=== PATIENT | male | born 1960 | race Caucasian/White ===

== ENCOUNTER 2022-01-18 07:54 | Outpatient (CLI) | payer MEDICARE, MEDICAID, SELFPAY ==
--- NOTE | ~2022-01-18 | US_ITS ---
US abdomen complete EXAMINATION: US Abdomen Complete INDICATION: Follow-up abnormal findings. PROCEDURE: Realtime High Resolution abdomen ultrasound. COMPARISON: No prior studies for comparison FINDINGS: Gallbladder within normal limits. No gallstones, pericholecystic fluid, gallbladder wall t hickening or biliary dilatation. Gallbladder is mildly distended. Common bile duct measures 5 mm. Liver echotexture within normal limits without focal mass. Pancreas within normal limits. Pancreati c tail is obscured by bowel gas. Spleen is unremarkeable. There are bilateral renal cysts, largest i n the right kidney measuring 12.7 x 9 x 12.5 cm. No solid masses or hydronephrosis. Right kidney kelly ures 13.7 cm. Left kidney measures 10.6 cm. Visualized aspects of the aorta and IVC are within normal limits. There is atherosclerosis of the aor ta without aneurysm. Portal vein is patent. No sonographic Naidu's sign indicated by the technologis t. IMPRESSION: 1: Bilateral renal cysts, largest in the right kidney measuring 12.7 cm maximum dimension. Reviewed, dictated and finalized at location A.
[2022-01-18 09:26] LABS: Alanine Aminotransferase 14 U/L (6-50); Albumin Level 4.3 g/dL (3.5-5.1); Alkaline Phosphatase 71 U/L (38-126); Aspartate Amino Transferase 27 U/L (17-59)
[2022-01-18 09:27] LABS: INR 1.1; Prothrombin Time 13.6 Seconds (11.1-14.7)
[2022-01-18 11:45] LABS: Lactate Dehydrogenase 125 U/L (120-246)
[2022-01-20 16:23] LABS: GGT 20 U/L (3-70)
== END 2022-01-18 07:55 | disposition home or self-care (01) ==
PROVIDERS: PCP Family Medicine; Visit Provider Nurse Practitioner
DX: R19.00 Intra-abdominal and pelvic swelling, mass and lump, unspecified site (principal); R93.2 Abnormal findings on diagnostic imaging of liver and biliary tract; R93.429 Abnormal radiologic findings on diagnostic imaging of unspecified kidney; K83.9 Disease of biliary tract, unspecified; S35.31 Injury of portal vein; N28.1 Cyst of kidney, acquired
CPT/HCPCS: 36415; 76700; 82040; 82977; 83615; 84075; 84155; 84450; 84460; 85610

== ENCOUNTER 2023-03-08 08:21 | Outpatient (CLI) | payer MEDICARE, MEDICAID, SELFPAY ==
--- NOTE | ~2023-03-08 | US_ITS ---
US arterial ankle brachial ind INDICATION: Polyneuropathy TECHNIQUE: Segmental pressures and plethysmographic and Doppler waveforms of the brachial and lower e xtremity arteries were obtained. COMPARISON: None. FINDINGS: Right and left brachial artery pressures of 138 mm Hg. Left brachial pressure not obtained. Patient r efused due to prior trauma. The right ankle-brachial index (GERMAINE) is 0.92 (normal >= 0.9-1.0). The right great toe-brachial index (TBI) is 0.19 (normal >= 0.60). The left GERMAINE is 1.02. The left TBI is 0.33. IMPRESSION: 1. Diminished bilateral toe brachial indices consistent with peripheral arterial disease. 2: Normal bilateral ankle-brachial indices. Reviewed, dictated and finalized at location B. L INSTRUMENT REPAIRER IMPRESSION: 1. Diminished bilateral toe brachial indices consistent with peripheral arteria l disease. 2: Normal bilateral ankle-brachial indices.
== END 2023-03-08 08:22 | disposition home or self-care (01) ==
PROVIDERS: PCP Family Medicine; Visit Provider Nurse Practitioner Adult Health
DX: I73.9 Peripheral vascular disease, unspecified (principal); G62.9 Polyneuropathy, unspecified
CPT/HCPCS: 93922

== ENCOUNTER 2023-05-25 08:17 | Outpatient (CLI) | payer MEDICARE, MEDICAID, SELFPAY ==
[2023-05-25 19:25] LABS: Alanine Aminotransferase 18 U/L (6-50); Albumin Level 4.1 g/dL (3.5-5.1); Alkaline Phosphatase 72 U/L (38-126); Anion Gap 7 mmol/L (8-16); Aspartate Amino Transferase 75 U/L (17-59); Bilirubin,Total 0.6 mg/dL (0.2-1.3); Blood Urea Nitrogen 16 mg/dL (9-20); Calcium 9.4 mg/dL (8.4-10.2); Carbon Dioxide 25 mmol/L (22-30); Chloride 106 mmol/L (98-107); Cholesterol 193 mg/dL (0-200); Estimated Glomerular Filt Rate > 60; Glucose 119 mg/dL (65-110); HDL Direct 69 mg/dL; Sodium 138 mmol/L (137-145); Triglycerides 194 mg/dL (<150)
[2023-05-25 19:36] LABS: Basophils Absolute Auto 0.1 K/mm3 (0.0-0.1); Basophils Percent Auto 0.6 % (0.2-1.2); Eosinophils Percent Auto 0.3 % (0-4.4); Hematocrit 50.1 % (42.0-52.0); Hemoglobin 16.3 g/dL (14.0-18.0); Immature Granulocyte Absolute 0.05 K/mm3 (0.00-0.031); Immature Granulocyte Percent A 0.4 % (0-0.5); Lymphocytes Absolute Auto 2.52 K/mm3 (0.9-3.2); Lymphocytes Percent Auto 17.9 % (18.3-44.2); Mean Corpuscular HGB Conc 32.5 g/dl (32-36); Mean Corpuscular Hemoglobin 31.9 pg (26-34); Monocytes Absolute Auto 1.4 K/mm3 (0.1-0.6); Monocytes Percent Auto 10.2 % (2.6-8.5); Neutrophils Percent Auto 70.6 % (45.5-73.1); Platelet Count Result 292 k/mm3 (150-375); Red Blood Count 5.11 M/mm3 (4.6-6.20); Red Cell Distribution Width 14.9 % (11.5-14.5); White Blood Count 14.1 K/mm3 (4.5-10.0)
[2023-05-25 19:37] LABS: LDL Cholesterol Direct 95 mg/dL
[2023-05-25 19:52] LABS: Prostate Specific Antigen 0.5 ng/mL (< OR = 4.0); Thyroid Stimulating Hormone 0.452 uIU/mL (0.465-4.680); Total Triiodothyronine (T3) 1.19 NG/ML (0.97-1.69)
[2023-05-25 20:16] LABS: Free T4 Free Thyroxine 1.16 ng/mL (0.78-2.19); Vitamin D 25 Hydroxy 29.1 ng/mL
== END 2023-05-25 08:18 | disposition home or self-care (01) ==
PROVIDERS: PCP Family Medicine; Visit Provider Family Medicine
DX: Z12.5 Encounter for screening for malignant neoplasm of prostate (principal); I10 Essential (primary) hypertension; M62.81 Muscle weakness (generalized); E55.9 Vitamin D deficiency, unspecified; E03.9 Hypothyroidism, unspecified; D64.9 Anemia, unspecified; Z13.1 Encounter for screening for diabetes mellitus; Z13.220 Encounter for screening for lipoid disorders; Z13.6 Encounter for screening for cardiovascular disorders; Z13.29 Encounter for screening for other suspected endocrine disorder
CPT/HCPCS: 36415; 80053; 80061; 82306; 84153; 84439; 84443; 84480; 85025; G0103

== ENCOUNTER 2024-03-04 12:23 | Outpatient (CLI) | payer MEDICARE, MEDICAID, SELFPAY ==
[2024-03-04 13:11] LABS: Basophils Absolute Auto 0.1 K/mm3 (0.0-0.1); Basophils Percent Auto 0.6 % (0.2-1.2); Eosinophils Absolute Auto 0.1 K/mm3 (0-0.3); Eosinophils Percent Auto 0.5 % (0-4.4); Hematocrit 44.7 % (42.0-52.0); Immature Granulocyte Absolute 0.02 K/mm3 (0.00-0.031); Immature Granulocyte Percent A 0.2 % (0-0.5); Lymphocytes Absolute Auto 2.97 K/mm3 (0.9-3.2); Mean Corpuscular HGB Conc 33.6 g/dl (32-36); Mean Corpuscular Hemoglobin 32.1 pg (26-34); Mean Corpuscular Volume 95.7 fl (80-100); Mean Platelet Volume 9.3 fl (7.4-10.4); Monocytes Absolute Auto 1.2 K/mm3 (0.1-0.6); Monocytes Percent Auto 11.3 % (2.6-8.5); Neutrophils Absolute Auto 6.3 K/mm3 (1.3-6.7); Neutrophils Percent Auto 59.4 % (45.5-73.1); Platelet Count Result 249 k/mm3 (150-375); Red Blood Count 4.67 M/mm3 (4.6-6.20); Red Cell Distribution Width 14.6 % (11.5-14.5); White Blood Count 10.6 K/mm3 (4.5-10.0)
[2024-03-04 15:34] LABS: Hepatitis C Virus Antibody Negative (Negative)
[2024-03-04 15:41] LABS: Alanine Aminotransferase 16 U/L (6-50); Albumin Level 4.1 g/dL (3.5-5.1); Alkaline Phosphatase 57 U/L (38-126); Anion Gap 8 mmol/L (4-12); Aspartate Amino Transferase 26 U/L (17-59); Bilirubin,Total 0.3 mg/dL (0.2-1.3); Blood Urea Nitrogen 20 mg/dL (9-20); Calcium 9.2 mg/dL (8.4-10.2); Carbon Dioxide 29 mmol/L (22-30); Chloride 101 mmol/L (98-107); Estimated Glomerular Filt Rate > 60; Glucose 85 mg/dL (65-110); Potassium 4.4 mmol/L (3.4-5.0); Sodium 138 mmol/L (137-145)
[2024-03-04 16:12] LABS: Prostate Specific Antigen 0.6 ng/mL (< OR = 4.0)
== END 2024-03-04 12:24 | disposition home or self-care (01) ==
PROVIDERS: PCP Family Medicine; Visit Provider Registered Nurse
DX: E78.5 Hyperlipidemia, unspecified (principal); Z12.5 Encounter for screening for malignant neoplasm of prostate; Z11.59 Encounter for screening for other viral diseases
CPT/HCPCS: 36415; 80053; 84153; 85025; 86803; G0103

== ENCOUNTER 2024-08-02 11:23 | Outpatient (CLI) | payer MEDICARE, MEDICAID, SELFPAY ==
--- OUTSIDE RECORDS SUMMARY | 2024-08-02 11:32 | XMS_ITS | Clinical Summary ---
Author Organization [facility] Address Formerly [facility] [place] [address] Care Team Providers Care Freight Elevator Operator Name Role Phone Dank De Jesus MD Primary Care Provider [phone] Medications HYDROcodone-mayela taminophen (NORCO) 10-325 MG tablet TAKE 1 TABLET BY MOUTH FOUR TIMES DAILY FOR PAIN 2 Active ASPIRIN LOW DOSE 81 MG tablet Take 81 mg by mouth daily. 2 Active lisinopril (PRINIVIL) 10 MG tablet lisinopril 10 mg tablet TAKE 1 TABLET BY MOUTH EVERY MORNING 1 Active Active Problems Problem Noted Date Diagnosed Date Renal cyst 02/14/2022 Primary hypertension 02/14/2022 Social History Tobacco Use Types Packs/Day Years Used Date Smoking Tobacco: Former Cigarettes Q uit: 2019 Smokeless Tobacco: Never Alcohol Use Standard Drinks/Week Comments Not Currently 0 (1 standard drink = 0.6 oz pur e alcohol) PHQ-2 Answer Date Recorded PHQ-2 Score - If the patient scores above 3, please move on to questions 3-9 2 02/14/2022 Sex and Gender Information Value Date Recorded Sex Assigned at Not on file Legal Sex Male 10:13 AM CDT Gender Identity Not on file Sexual Orientation Not on file Last Filed Vital Signs Vital Sign Reading Time Taken Comments Blood Pressure 172/116 02/14/2022 12:22 PM CDT Pulse 78 02/14/2022 12:00 PM CDT Temperature 36.9 C (98.5 F) 02/14/2022 12:00 PM CDT Respiratory Rate 16 02/14/2022 12:00 PM CDT Oxygen Saturation 98% 02/14/2022 12:00 PM CDT Inhaled Oxygen Concentration - - Weight 83.5 kg (184 lb) 02/14/2022 12:00 PM CDT Height 185.4 cm (6' 1 ) 02/14/2022 12:00 PM CDT Body Mass Index 24.28 02/14/2022 12:00 PM CDT Plan of Treatment Health Maintenance Due Date Last Done Comments Colorectal Cancer Screening Colonoscopy (10 Years) 1958 Hepatitis C 1976 DTaP, Tdap and Td Vaccines ( 1 - Tdap) 1977 Zoster Vaccines (1 of 2) 2008 Annual Medicare Wellness Visit 2023 Pneumococcal Vaccine: 50+ Ye ars (1 of 1 - PCV) 2023 COVID-19 Vaccine ( - 2023-2 5 season) 2023 RSV Immunization or 60+ Years (1 - 1-dose 75+ series) 2033 Meningococcal B Vaccine Aged Out No l onger eligible based on patient's age to complete this topic Meningococcal Vaccine Aged Out No preston akira eligible based on patient's age to complete this topic RSV Immunizations Under 20 Months Aged Out No longer eligible based on patient's age to complete this topic Insurance MEDICARE MEDICAID DEPT OF [place] [id number] Care Teams Freight Elevator Operator Relationship Specialty Start Date End Date Dank De Jesus MD [address] [place] [address] PCP - General FAMILY PRACTICE 03/23/22
--- OUTSIDE RECORDS SUMMARY | 2024-08-02 11:32 | XMS_ITS | Clinical Summary ---
Author Organization [place] [address] [place] Address [address] [place] [id number] Care Team Providers Care Practice Director Name Role Phone Dank De Jesus MD Primary Care Provider Allergies No known active allergies Medications lisinopriL (PRINIVIL,ZEST RIL) 10 mg tablet Take 1 tablet (10 mg total) by mouth daily 90 tablet 1 Active aspirin 81 mg enteric coated tablet ASPIRIN 81 MG ORAL TABLET 0 Active HYDROcodone-ac etaminophen (NORCO) 10-325 mg per tablet 4 Active amitriptyline (ELAVIL) 25 mg tablet amitriptyline 25 mg tablet Active Active Problems Problem Noted Date Diagnosed Date Complex regional pain syndro me type 2 of both lower extremities 04/22/2021 Radiculopathy, lumbosacral region 04/22/2021 Encounter for chronic pain management 04/17/2021 Overview (04/17/2021): With first office visit had told patient that we did not prescribe Oxycodone. Told patient he should go to pain management. Several groups were discussed. Note if unable to get an appointment to call last provider for assistance. Again stressed the importance of contacting provider. Pain in unspecified limb 04/15/2021 Assessment & Plan (04/17/2021 9:24 PM MEDICAL TRANSCRIPTION): Continue trying to get into pain management group or call past provider for assistance. If no help and increasing pain to go to ER for assistance. Screening cholesterol level 03/30/2021 Assessment & Plan (04/02/2021 7:20 PM MEDICAL TRANSCRIPTION): Lab work for hyperlipidemia. Work on diet, exercise. Fatigue of lower extremity 03/30/2021 Assessment & Plan (06/13/2021 10:50 PM MEDICAL TRANSCRIPTION): Again told to call [facility] Unit at [place] and try to get another appointment. Note all of his paper work was sent so all he needs to do is call for appointment. Also talked with him about going to pain management For time that he can not see [facility]. Note his significant other got on the phone and asking for more medication. Again stressed the fact, we are not able to do this . Note again asked her why they did not go to the [facility] appointment, States problem with snow. There was no snow on the stated date; Asked her why they didn't remake the appointment, she states she works and they have a 93 Year old mother on Hospice, Told her hospice does have sitters to help families in regards to this.. ALso if this is a major issue she needs to find time for him to take him Note he recently saw another provider , records of visit sent. Note has films done, and other testing done. Note was given a script for Tramadol Assessment & Plan (04/17/2021 9:27 PM MEDICAL TRANSCRIPTION): Continue with pain management plan Continue with meds as ordered. Refuses any type of med to help with pain that is non-narcotic stating that they do not work. Varioius drugs were reviewed that might help with pain and sleep that are non-narcotic. Assessment & Plan (04/02/2021 7:18 PM MEDICAL TRANSCRIPTION): Talked about seeing Neurosurgeon or ortho Encouraged using walker instead of cane. Note asked for Oxycodone, told patient he would have to go to Pain Management. Talked with him about trying Elavil 25 mg at HS, states would consider. Advised trying not to fall, note he is taking care of his 93 year old mom at home. Talked with him about Senior Services, note he states she is on Hospice. Hypertension, essential 03/30/2021 Assessment & Plan (06/13/2021 10:52 PM MEDICAL TRANSCRIPTION): Continue with medications as ordered. Watch diet for salt intake, no added salt, Avoid salty foods. Exercise if tolerated. Chair aerobics. Assessment & Plan (04/02/2021 7:19 PM MEDICAL TRANSCRIPTION): Continue with meds as ordered. Work on reducing smoking. Work on diet, exercise as tolerated. Pain in left leg 03/30/2021 Assessment & Plan (06/13/2021 10:55 PM MEDICAL TRANSCRIPTION): Refer to pain management. Encouraged to call [facility] Motor Coordination Unit.for an appointment. Assessment & Plan (04/17/2021 9:25 PM MEDICAL TRANSCRIPTION): Continue with previous pain management for limb pain. Assessment & Plan (04/06/2021 8:26 AM MEDICAL TRANSCRIPTION): Continue with medications as ordered. Talked with patient about Oxy, told him I do not prescribe this and the practice does not. Advised that we have pain management here and would be glad to refer. Did talk with him about using Elavil 25mg at , states he might try. 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 Abnormal electrocardiogram 12/01/2011 Tobacco dependence syndrome 12/24/2009 Encounters Date Type Department Care Team Description 2024 Telephone [facility] Radiation Oncology [address] [place] [phone] Vicky Kurtz RN from Last 3 Months Medical History Medical History Date Comments Hypertension Family History Medical History Relation Name Comments Stroke Brother Heart disease Father Stroke Father Alzheimer's disease Mother Dementia Mother Heart disease Mother Neuropathy Mother Relation Name Status Comments Brother Father Mother Alive Social History Tobacco Use Types Packs/Day Years Used Date Smoking Tobacco: Some Days Smokeless Tobacco: Never PHQ-2 Answer Date Recorded PHQ-2 Total Score 0 03/30/2021 Personal Safety Answer Date Recorded Getting School Help Needed Not on file 05/12 Sex and Gender Information Value Date Recorded Sex Assigned at Not on file Legal Sex Male 4:03 AM MEDICAL TRANSCRIPTION Gender Identity Not on file Sexual Orientation Bisexual 06/10/2021 2: 21 PM MEDICAL TRANSCRIPTION Obstetrics History Last Filed Vital Signs Vital Sign Reading Time Taken Comments Blood Pressure 189/89 11/07/2023 9:26 AM CDT Pulse 67 11/07/2023 9:26 AM CDT Temperature 37.4 C (99.3 F) 11/07/2023 9:26 AM CDT Respiratory Rate 16 11/07/2023 9:2 6 AM CDT Oxygen Saturation 99% 11/07/2023 9:26 AM CDT Inhaled Oxygen Concentration - - Weight 85.6 kg (188 lb 12.8 oz) 11/07/2023 9:26 AM CDT Height 185.4 cm (6' 1 ) 04/22/2021 11:4 7 AM MEDICAL TRANSCRIPTION Body Mass Index 24.91 04/22/2021 11:47 AM MEDICAL TRANSCRIPTION Plan of Treatment Health Maintenance Due Date Last Done Comments Colon Cancer Screening-Colonoscopy 1958 Hepatitis C Screening 1958 Prostate Cancer Screening-PSA 1958 DTaP/Tdap/Td Vaccine (1 - Tdap) 1969 Hepatitis B Screening 1976 Pneumococcal vaccine 65+ (1 of 2 - PCV) 1977 Zoster Vaccine (1 of 2) 2008 Depression Screening 03/30/2022 03/30/2021 Abdominal Aortic Aneurysm (AAA) Screen 2023, 11/15/2021 Well Visit 65+ 2023 Influenza Vaccine (#1) 2023 Fall Risk Assessment 11/06/2024 11/07/2023, 03/30/20 21 Procedures Procedure Name Priority Date/Time Associated Diagnosis Comments CT ABDOMEN W WO CONTRAST Schedule Routine, Read Routine (OP Routine) 11/24/2021 11:20 AM CDT Renal cyst, right from Last 3 Months or Most Recently Relevant to Health Maintenance Results * CT Abdomen W WO Contrast (11/24/2021 11:20 AM CDT) Anatomical Region Laterality Modality Body N/A Computed Tomogra phy 11/26/2021 4:27 PM CDT Narrative 11/26/2021 4:39 PM CDT EXAM DESCRIPTION: CT ABDOMEN W WO CONTRAST REASON FOR STUDY: Indeterminate right renal and right adrenal lesion. TECHNIQUE: CT scan of the abdomen performed without and with intravenous and without oral contrast using helical scanning technique with dynamic intravenous contrast injection. Precontrast, portal venous, and 15 minute delayed images were acquired. Reconstructed coronal and sagittal MPR images reviewed. All images stored on PACS. Automated exposure control was used as a dose optimization technique for this examination. CONTRAST TYPE/DOSE: 75mL of IOVERSOL 350 MG IODINE/ML INTRAVENOUS SOLUTION injected via intravenous COMPARISON: CT dated November 15, 2021 FINDINGS: RIGHT ADRENAL: Within the right adrenal gland there is a 1.4 x 1.2 cm nodule. This measures 3 Hounsfield units on the noncontrast examination and is compatible with a benign lipid rich adenoma. LEFT ADRENAL: No masses. ABDOMEN: LOWER CHEST: No pleural or pericardial effusion. Multiple metallic fragments are noted within left hemithorax posteriorly. LIVER: Normal size. No identified cystic or solid masses. No cysts. GALLBLADDER: The gallbladder is mildly distended. No stones identified. No wall thickening or inflammatory changes. BILE DUCTS: Mild prominence of the intrahepatic and extrahepatic biliary system, stable. SPLEEN: Normal size. No focal lesions. PANCREAS: No identified cystic or solid masses. No significant calcifications. No adjacent inflammation or peripancreatic fluid collections. Pancreatic duct not dilated. KIDNEYS/URINARY TRACT: No identified significant cystic or solid masses. Bilateral multiple cysts including a large dominant cyst involving the lower pole of the right kidney measuring a maximum of 1.3 x 9.8 cm). No stones. No hydronephrosis or hydroureter. Symmetric enhancement. GI: No dilated bowel loops. No obvious wall thickening. No significant diverticular disease. PERITONEUM: No ascites or free. No hernia. RETROPERITONEUM: No mass or adenopathy. VASCULATURE: No abdominal aortic aneurysm. MUSCULOSKELETAL: No acute findings. OTHER: No significant abnormality. IMPRESSION: 1. 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 No follow-up is consider warranted. 2. Bilateral Bosniak I and Cayden numeral 2 cysts. No concerning renal lesion identified 3. Mild prominence of gallbladder. Mild prominence of the biliary system. Correlation with LFTs and if clinically warranted ERCP. THIS IS AN ELECTRONICALLY VERIFIED FINAL REPORT 11/26/2021 4:39 PM - Electronically signed by Agustin Hui M.D. JA: NATALIIA Report ID: [id number] Reading Location: [id number] Procedure Note Agustin Hui MD - 11/26/2021 EXAM DESCRIPTION: CT ABDOMEN W WO CONTRAST REASON FOR STUDY: Indeterminate right renal and right adrenal lesion. TECHNIQUE: CT scan of the abdomen performed without and with intravenousand without oral contrast using helical scanning technique with dynamic intravenous contrast injection. Precontrast, portal venous, and 15 minute delayed images were acquired. Reconstructed coronal and sagittal MPRimages reviewed. All images stored on PACS. Automated exposure control was usedas a dose optimization technique for this examination. CONTRAST TYPE/DOSE: 75mL of IOVERSOL 350 MG IODINE/ML INTRAVENOUSSOLUTION injected via intravenous COMPARISON: CT dated November 15, 2021 FINDINGS: RIGHT ADRENAL: Within the right adrenal gland there is a 1.4 x 1.2 cm nodule. This measures 3 Hounsfield units on the noncontrast examinationand is compatible with a benign lipid rich adenoma. LEFT ADRENAL: No masses. ABDOMEN: LOWER CHEST: No pleural or pericardial effusion. Multiple metallic fragments are noted within left hemithorax posteriorly. LIVER: Normal size. No identified cystic or solid masses. No cysts. GALLBLADDER: The gallbladder is mildly distended. No stones identified.No wall thickening or inflammatory changes. BILE DUCTS: Mild prominence of the intrahepatic and extrahepatic biliary system, stable. SPLEEN: Normal size. No focal lesions. PANCREAS: No identified cystic or solid masses. No significant calcifications. No adjacent inflammation or peripancreatic fluidcollections. Pancreatic duct not dilated. KIDNEYS/URINARY TRACT: No identified significant cystic or solid masses. Bilateral multiple cysts including a large dominant cyst involving thelower pole of the right kidney measuring a maximum of 1.3 x 9.8 cm). No stones.No hydronephrosis or hydroureter. Symmetric enhancement. GI: No dilated bowel loops. No obvious wall thickening. No significant diverticular disease. PERITONEUM: No ascites or free. No hernia. RETROPERITONEUM: No mass or adenopathy. VASCULATURE: No abdominal aortic aneurysm. MUSCULOSKELETAL: No acute findings. OTHER: No significant abnormality. IMPRESSION: 1. 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 No follow-up isconsider warranted. 2. Bilateral Bosniak I and Cayden numeral 2 cysts. No concerning renal lesion identified 3. Mild prominence of gallbladder. Mild prominence of the biliarysystem. Correlation with LFTs and if clinically warranted ERCP. THIS IS AN ELECTRONICALLY VERIFIED FINAL REPORT 11/26/2021 4:39 PM - Electronically signed by Agustin Hui M.D. JA: NATALIIA Report ID: [id number] Reading Location: [place] [address] [place] Provider Transcribed Order IMG CT PROCEDURES Fin al Result from Last 3 Months or Most Recently Relevant to Health Maintenance Insurance MEDICARE [facility] MEDICARE [place] [phone] Care Teams Practice Director Relationship Specialty Start Date End Date Dank De Jesus MD PCP - General 12/09/21
--- OUTSIDE RECORDS SUMMARY | 2024-08-02 11:32 | XMS_ITS | Referral Summary ---
Author Organization [facility] [address] [place] Address [address] [place] [id number] Care Team Providers Care Ground Support Agent Name Role Phone Dank De Jesus MD Primary Care Provider [phone] Encounters Date Type Department Care Team Description 2024 Telephone [facility] Radiation Oncology [address] [place] [phone] Vicky Kurtz RN from Last 3 Months Allergies No known active allergies Medications lisinopriL [...] 04/15/2021 Assessment & Plan (04/17/2021 9:24 PM REPAIR ELECTRIC MOTOR ASSEMBLER): Continue trying to get into pain management group or call past provider for assistance. If no help and increasing pain to go to ER for assistance. Screening cholesterol level 03/30/2021 Assessment & Plan (04/02/2021 7:20 PM REPAIR ELECTRIC MOTOR ASSEMBLER): Lab work for hyperlipidemia. Work on diet, exercise. Fatigue of lower extremity 03/30/2021 Assessment & Plan (06/13/2021 10:50 PM REPAIR ELECTRIC MOTOR ASSEMBLER): Again told to call [facility] Unit at [place] and try to get another appointment. Note all of his paper work was sent so all he needs to do is call for appointment. Also talked with him about going to pain management For time that he can not see [facility]. Note his significant other got on the phone and asking for more medication. Again stressed the fact, we are not able to do this . Note again asked her why they did not go to the [facility] appointment, States problem with snow. There was [...] Tramadol Assessment & Plan (04/17/2021 9:27 PM REPAIR ELECTRIC MOTOR ASSEMBLER): Continue with pain management plan Continue with meds as ordered. Refuses any type of med to help with pain that is non-narcotic stating that they do not work. Varioius drugs were reviewed that might help with pain and sleep that are non-narcotic. Assessment & Plan (04/02/2021 7:18 PM REPAIR ELECTRIC MOTOR ASSEMBLER): Talked about seeing Neurosurgeon or ortho Encouraged [...] 03/30/2021 Assessment & Plan (06/13/2021 10:52 PM REPAIR ELECTRIC MOTOR ASSEMBLER): Continue with medications as ordered. Watch diet for salt intake, no added salt, Avoid salty foods. Exercise if tolerated. Chair aerobics. Assessment & Plan (04/02/2021 7:19 PM REPAIR ELECTRIC MOTOR ASSEMBLER): Continue with meds as ordered. Work on reducing smoking. Work on diet, exercise as tolerated. Pain in left leg 03/30/2021 Assessment & Plan (06/13/2021 10:55 PM REPAIR ELECTRIC MOTOR ASSEMBLER): Refer to pain management. Encouraged to call [facility] Motor Coordination Unit.for an appointment. Assessment & Plan (04/17/2021 9:25 PM REPAIR ELECTRIC MOTOR ASSEMBLER): Continue with previous pain management for limb pain. Assessment & Plan (04/06/2021 8:26 AM REPAIR ELECTRIC MOTOR ASSEMBLER): Continue with medications as ordered. Talked with patient about Oxy, told him I do not prescribe this and the practice does not. Advised that we have pain management here and would be glad to refer. Did talk with him about using Elavil 25mg at [facility] , states he might try. 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 Abnormal electrocardiogram 12/01/2011 Tobacco dependence syndrome 12/24/2009 Social History Tobacco Use Types Packs/Day Years Used Date Smoking Tobacco: Some Days Smokeless Tobacco: Never PHQ-2 Answer Date Recorded PHQ-2 Total Score 0 03/30/2021 Personal Safety Answer Date Recorded Getting School Help Needed Not on file 05/12 Sex and Gender Information Value Date Recorded Sex Assigned at Not on file Legal Sex Male 4:03 AM REPAIR ELECTRIC MOTOR ASSEMBLER Gender Identity Not on file Sexual Orientation Bisexual 06/10/2021 2: 21 PM REPAIR ELECTRIC MOTOR ASSEMBLER Last Filed Vital Signs Vital Sign Reading Time Taken Comments Blood Pressure 189/89 11/07/2023 9:26 AM CDT Pulse 67 11/07/2023 9:26 AM CDT Temperature 37.4 C (99.3 F) 11/07/2023 9:26 AM CDT Respiratory Rate 16 11/07/2023 9:26 AM CDT Oxygen Saturation 99% 11/07/2023 9:26 AM CDT Inhaled Oxygen Concentration - - Weight 85.6 kg (188 lb 12.8 oz) 11/07/2023 9:26 AM CDT Height 185.4 cm (6' 1 ) 04/22/2021 11:4 7 AM REPAIR ELECTRIC MOTOR ASSEMBLER Body Mass Index 24.91 04/22/2021 11:47 AM REPAIR ELECTRIC MOTOR ASSEMBLER Plan of Treatment Not on file Procedures Procedure Name Priority Date/Time Associated Diagnosis [...] Agustin Hui M.D. JA: NATALIIA Report ID: [id number] Reading Location: [place] [id number] Procedure Note Agustin Hui MD - 11/26/2021 [...] Agustin Hui M.D. JA: NATALIIA Report ID: [id number] Reading Location: [id number] us Provider Transcribed Order IMG CT PROCEDURES Fin al Result from Last 3 Months or Most Recently Relevant to Health Maintenance Insurance [place]ICARE [place] MEDICARE [facility] Address: [address] [address] [place] [address] [place] Care Teams Ground Support Agent Relationship Specialty Start Date End Date Dank De Jesus MD PCP - General 12/09/21
--- OUTSIDE RECORDS SUMMARY | 2024-08-02 11:32 | XMS_ITS | Encounter Summary ---
Author Organization [facility] Address [address] [place] [address] Care Team Providers Care Poising Inspector Name Role Phone Darnell Blanco MD Primary Care Provider [phone] Encounter Details Date Type Department Care Team (Late st Contact Info) Description 07/21/2022 Lab Requisition [facility] Care DermPath Lab [address] [place] [address] Zaid Aponte MD [facility] [place] [address] Social History Tobacco Use Types Packs/Day Years Used Date Smoking Tobacco: Some Days Smokeless Tobacco: Never Alcohol Use Standard Drinks/Week Comments Yes 0 (1 standard drink = 0.6 oz pur e alcohol) Sex and Gender Information Value Date Recorded Sex Assigned at Not on file Legal Sex Male 7:04 PM QUALITY ASSURANCE TECH Gender Identity Not on file Sexual Orientation Not on file documented as of this encounter Plan of Treatment Not on file documented as of this encounter Procedures Procedure Name Priority Date/Time Associated Diagnosis Comments DERMATOPATHOLOGY Routine 07/20/2022 12:0 0 AM CDT documented in this encounter Results * DERMATOPATHOLOGY (07/20/2022 12:00 AM CDT) Case Report Dermatopathology Report Case: [id number] Authorizing Provider: Zaid Aponte MD Collected: 07/20/2022 12:00 AM Ordering Location: [facility] DermPath Lab Received: 07/21/2022 04:15 PM Pathologist: Valerie Vazquez MD Specimen: Skin, right nasal bridge 1:45 PM CDT DERMATOPATHOLOGY LABORATORY Final Diagnosis Specimen A. SKIN, right nasal bridge: DERMAL SCAR, PRESENT AT MARGIN RESIDUAL BASAL CELL CARCINOMA NOT IDENTIFIED (L90.5) 1:45 PM CDT DERMATOPATHOLOGY LABORATORY Clinical History Bx proven BCC 1:45 PM CDT DERMATOPATHOLOGY LABORATORY Gross Description Specimen A: Received is one formalin filled container labeled with the patient's name and designated right nasal bridge. The specimen consists of a shave biopsy measuring 10x9x1 mm. Jar 0. 1:45 PM CDT DERMATOPATHOLOGY LABORATORY Microscopic Description Specimen A. SKIN, right nasal bridge: There are fibroblasts and collagen bundles oriented parallel to the skin surface. There are elongated blood vessels, some of which are oriented perpendicular to the skin surface. No basal cell carcinoma is identified. Scar is present at the base of the specimen. 1:45 PM CDT DERMATOPATHOLOGY LABORATORY Disclaimer An external and internal positive and negative controls are appropriate for the histochemical, immunohistochemical and immunofluorescence stain(s) in this case (if any), except where stated explicitly. The performance characteristics of the stain(s) cited in this report were developed and its performance characteristic determined by the Dermatopathology Laboratory at [facility], directed by Dr. Humza Purcell. These tests need not be, and therefore are not, approved by the [place] Food and Drug Administration. The tests are used for clinical purposes. Billing Codes Specimen Charges Stain Charges 90332 1 1:45 PM CDT DERMATOPATHOLOGY LABORATORY Embedded Images 1:45 PM CDT DERMATOPATHOLOGY LABORATORY Pathology/Cytolog y TISSUE SPECIMEN FROM SKIN / Unknown 07/20/2022 07/21/2022 4:15 PM CDT us Zaid Aponte MD LAB - PATHOLOGY/CYTOLOGY ORDERAB LES Final Result DERMATOPATHOLOGY LABORATORY [facility] - Department of Dermatology [address], [address] [phone] documented in this encounter Visit Diagnoses Not on filedocumented in this encounter Care Teams Poising Inspector Relationship Specialty Start Date End Date Darnell Blanco MD [address] [place] [address] PCP - General 06/10/11 documented as of this encounter
--- OUTSIDE RECORDS SUMMARY | 2024-08-02 11:32 | XMS_ITS | CONTINUITY OF CARE DOCUMENT ---
Author Name krupa gentile Address Unknown Organization [facility] Address [address] [place] [address] Phone [phone] Care Team Providers Care Sweatband Decorating Machine Operator Name Role Phone Prasanth Restrepo MD Unavailable [phone] JULIO HERNANDEZ MD Unavailable [phone] ZAMZAM TOMAS MD Unavailable PROBLEMS Condition Status Date Provider Notes ABNORMAL ELECTROCARDIOGRAM active Prasanth arellano MD LEG PAIN-8 GERMAINE SEVERE ART DIS RLE RSFA OCCLUDED active ? Prasanth Restrepo MD TOBACCO ABUSE active Prasanth Restrepo MD ENCOUNTERS Date Type Provider Location Encounter Diag nosis - In-person encounter Office Visit Prasanth Restrepo MD [facility] LEG PAIN-8/12 GERMAINE SEVERE ART DIS RLE RSFA OCCLUDEDABNORMAL ELECTROCARDIOGRAM - In-person encounter Office Visit Prasanth Restrepo MD [facility] - In-person encounter Office Visit Prasanth Restrepo MD [facility] - In-person encounter Office Visit Prasanth Restrepo MD [facility] - In-person encounter Office Visit Prasanth Restrepo MD [facility] - In-person encounter Office Visit Prasanth Restrepo MD [facility] - In-person encounter Office Visit Prasanth Restrepo MD [facility] TOBACCO ABUSE VITAL SIGNS Date Observation Value Provider blood pressure, diastolic 74 mm[Hg] Melissa seph [place] blood pressure, systolic 108 mm[Hg] Jorge eph [place] pulse rate 74 /min Santosh [place] oxygen saturation, oximetry 98 % Santosh [place] respiratory rate E&M 16 /min Santosh [place] weight E&M 199 [lb_av] Santosh [place] blood pressure, diastolic 70 mm[Hg] Melissa seph [place] blood pressure, systolic 124 mm[Hg] Jorge eph [place] pulse rate 68 /min Santosh [place] oxygen saturation, oximetry 99 % Santosh [place] respiratory rate E&M 14 /min Santosh [place] weight E&M 212 [lb_av] Santosh [place] blood pressure, diastolic 82 mm[Hg] Melissa seph [place] blood pressure, systolic 134 mm[Hg] Jorge eph [place] pulse rate 63 /min Santosh [place] oxygen saturation, oximetry 99 % Santosh [place] respiratory rate E&M 16 /min Santosh [place] weight E&M 209 [lb_av] Santosh [place] blood pressure, diastolic 79 mm[Hg] Khan blood pressure, systolic 138 mm[Hg] Rupesh Woods pulse rate 96 /min Julio Chambersran oxygen saturation, oximetry 93 % Julio Woods respiratory rate E&M 16 /min Julio Woods weight E&M 210 [lb_av] Julio Woods blood pressure, diastolic 90 mm[Hg] Ca miguelina Mcneill blood pressure, systolic 137 mm[Hg] Car albert Mcneill pulse rate 67 /min Cecy Mcneill oxygen saturation, oximetry 99 % Cecy Mcneill respiratory rate E&M 20 /min Cecy zarate weight E&M 207 [lb_av] Cecy JonesOsito blood pressure, diastolic 79 mm[Hg] Casi herndon [place] blood pressure, systolic 125 mm[Hg] Cintia hdez [place] pulse rate 82 /min Trang [place] oxygen saturation, oximetry 97 % Trang [place] respiratory rate E&M 18 /min Trang [place] weight E&M 205 [lb_av] Trang [place] blood pressure, diastolic 886 mm[Hg] Daniel Mitchell RN blood pressure, systolic 148 mm[Hg] Donovan Mitchell RN pulse rate 65 /min Donovan Mitchell RN oxygen saturation, oximetry 100 % Donovan Mitchell RN respiratory rate E&M 18 /min Donovan valiente RN weight E&M 204 [lb_av] Donovan Mitchell RN ALLERGIES No Known Drug Allergies RESULTS Date Observation Value Provider Reference Range Interpretation Location lipoprotein, beta, serum, point, quantitative, calculated 104 mg/dL [facility] cholesterol, serum 214 mg/dL [facility] thyroid stimulating hormone, serum 1.270 u[IU]/mL [facility] alanine aminotransferase (SGPT), serum 20 1/L [facility] aspartate aminotransferase (SGOT), serum 21 1/L [facility] creatinine, serum 0.73 mg/dL [facility] potassium, serum 4.7 mmol/L [facility] sodium, serum 141 mmol/L [facility] prothrombin time (patient) 10.2 s [facility] international normalized ratio (INR) 1.0 [facility] calcium, serum 9.1 mg/dL [facility] blood glucose, fasting 84 mg/dL [facility] creatinine, serum 0.84 mg/dL [facility] urea nitrogen, blood 16.5 mg/dL [facility] carbon dioxide, serum, total 32 mmol/L [facility] chloride, serum 104 mmol/L [facility] potassium, serum 4.5 mmol/L [facility] sodium, serum 142 mmol/L [facility] platelet count 283 10*3/uL [facility] red blood cell distribution width 13.9 % [facility] mean corpuscular hemoglobin concentration, RBC 33.6 g/dL [facility] mean corpuscular hemoglobin, RBC 32.3 pg [facility] mean corpuscular volume, RBC 95.9 fL [facility] hematocrit, blood 42.2 % [facility] hemoglobin, blood 14.2 g/dL [facility] erythrocyte (RBC) count 4.40 10*6/mm3 [facility] monocytes as percent of blood leukocytes 12.8 % [facility] lymphocytes as percent of blood leukocytes 38.0 % [facility] leukocyte count, blood 7.3 10*3/mm3 [facility] HISTORY OF MEDICATION USE Medication Status Instructions Dates Provider Indications Com ments ASPIRIN 81 MG ORAL TABLET active ONE TAB. DAILY Santosh Manacop PLAVIX 75 MG ORAL TABLET completed ONE TAB. DAILY - Santosh Manac[place] LYRICA 75 MG ORAL CAPSULE completed twice daily - Julio Woods HYDROCODONE-ACET AMINOPHEN 7.5-500 MG ORAL TABLET active as needed Donovan Mitchell RN OXYCONTIN 40 MG [id number] active twice daily Donovan Mitchell RN SOCIAL HISTORY Date Observation Value Provider social history reviewed E&M reviewed Donovan Mitchell RN social history reviewed E&M reviewed Donovan Mitchell RN social history reviewed E&M reviewed Donovan Mitchell RN smoking/tobacco cess ation, patient education and counseling yes Prasanth Restrepo MD social history reviewed E&M reviewed Prasanth Restrepo MD social history reviewed E&M reviewed Donovan Mitchell RN smoking/tobacco cess ation, patient education and counseling yes Donovan Mitchell RN social history reviewed E&M reviewed Donovan Mitchell RN social history E&M Marital Statu s: L michelle with family/friends E thnicity: Donovan Mitchell RN social history reviewed E&M reviewed Donovan Mitchell RN physical exercise, f requency, days per week no [employer] caffeine use, averag e drinks per day no [employer] alcohol use, average drinks per day none LinkLog smoking status Non-smoker [employer] MENTAL STATUS Date Observation Value Provider assessment of judgme nt and insight E&M Alert and oriented to time, place and person. Mood and affect are normal. Donovan Mitchell RN assessment of judgme nt and insight E&M Alert and oriented to time, place and person. Mood and affect are normal. Donovan Mitchell RN assessment of judgme nt and insight E&M Alert and oriented to time, place and person. Mood and affect are normal. Donovan Mitchell RN assessment of judgme nt and insight E&M Alert and oriented to time, place and person. Mood and affect are normal. Prasanth Restrepo MD assessment of judgme nt and insight E&M Alert and oriented to time, place and person. Mood and affect are normal. Donovan Mitchell RN assessment of judgme nt and insight E&M Alert and oriented to time, place and person. Mood and affect are normal. Donovan Mitchell RN assessment of judgme nt and insight E&M Alert and oriented to time, place and person. Mood and affect are normal. Donovan Mitchell RN INSURANCE PROVIDERS Payer name Policy type / Coverage type [facility] HE[facility] FAMILY [facility] Medicaid 1 [id number] [place] MED[place] Medicare [id number] TREATMENT PLAN Date Name Performer Follow-up on tests Prasanth Restrepo MD Follow-up on tests:t his is unchanged i.e left leg is more painful although it is better revascularized. Prasanth Restrepo MD left leg pain : T he following medications were removed from the medication list: Plavix 75 Mg Tabs (Clopidogrel bisulfate) ..... One tab. daily His updated medication list for this problem includes: Aspirin 81 Mg Tabs (Aspirin) ..... One tab. daily Prasanth Restrepo MD left leg pain Prasanth Restrepo MD left leg pain : O rders: E KG ([id number]) Prasanth Restrepo MD 6 month follow-up:quit Prasanth arellano MD 6 month follow-up Prasanth Brantley 6 month follow-up Prasanth Brantley follow up Prasanth Restreop MD follow up:The Patient was reenco uraged to stop smoking. Prasanth Restrepo MD follow up:he continu es to have pain in both legs and is still concerned i will refer to Dr Gabriel for possible orthopedic. Prasanth Restrepo MD follow up Prasanth Restrepo MD lsfa stent f/u:he stewart s been having pain in the back of the right leg and will do an germaine to see continued patency of stents and to see if there is a problem with the right leg at site of angioseal? Prasanth Restrepo MD lsfa stent f/u: O rders: E KG ([id number]) Prasanth Restrepo MD leg pain Prasanth Restrepo MD Date Name Stress Test - Adenos ine VITAMIN D, 25-HYDROX Y, LC/MS/MS THYROID PANEL WITH T SH, 3RD GENERATION LIPID PANEL COMPREHENSIVE METABO LIC PANEL W/EGFR Arterial Duplex Bi-L ower EX Arterial Duplex Lowe r Extremity Bilateral Arterial Duplex Lowe r Extremity Bilateral Peripheral Stent - G C HISTORY OF PROCEDURES Procedure Date Procedure Name Provider Procedure Notes S tatus EKG Prasanth Restrepo MD completed ePrescribe - Check t his box if eRx is used Prasanth Restrepo MD completed ePrescribe - Check t his box if eRx is used Prasanth Restrepo MD completed EKG Prasanth Restrepo MD completed
--- OUTSIDE RECORDS SUMMARY | 2024-08-02 11:32 | XMS_ITS | Encounter Summary ---
Author Organization [facility] Address [address] [place] [address] Care Team Providers Care Beam Worker Name Role Phone Darnell Blanco MD Primary Care Provider [phone] Encounter Details Date Type Department Care Team (Late st Contact Info) Description 06/15/2022 Lab Requisition [facility] DermPath Lab [address] [facility] [place] [phone] Zaid Aponte MD [facility] [place] [address] Social History Tobacco Use Types Packs/Day Years Used Date Smoking Tobacco: Some Days Smokeless Tobacco: Never Alcohol Use Standard Drinks/Week Comments Yes 0 (1 standard drink = 0.6 oz pur e alcohol) Sex and Gender Information Value Date Recorded Sex Assigned at Not on file Legal Sex Male 7:04 PM HUMAN GEOGRAPHY FACULTY MEMBER Gender Identity Not on file Sexual Orientation Not on file documented as of this encounter Plan of Treatment Not on file documented as of this encounter Procedures Procedure Name Priority Date/Time Associated Diagnosis Comments DERMATOPATHOLOGY Routine 06/14/2022 12:0 0 AM HUMAN GEOGRAPHY FACULTY MEMBER documented in this encounter Results * DERMATOPATHOLOGY (06/14/2022 12:00 AM HUMAN GEOGRAPHY FACULTY MEMBER) Case Report Dermatopathology Report Case: [id number] Authorizing Provider: Zaid Aponte MD Collected: 06/14/2022 12:00 AM Ordering Location: [facility] DermPath Lab Received: 06/15/2022 04:46 PM Pathologist: Sherice Barnett MD Specimens: A) - Skin, right nasal bridge B) - Skin, left preauricular 3 2:49 PM [facility] DERMATOPATHOLOGY LABORATORY Final Diagnosis Specimen A. SKIN, right nasal bridge: BASAL CELL CARCINOMA, SUPERFICIAL MULTIFOCAL (C44.311) Specimen B. SKIN, left preauricular: BASAL CELL CARCINOMA, INFILTRATIVE PATTERN (C44.319) (see microscopic description) 3 2:49 PM [facility] DERMATOPATHOLOGY LABORATORY Clinical History A-B: Erosion R/O BCC 3 2:49 PM [facility] DERMATOPATHOLOGY LABORATORY Gross Description Specimen A: Received is one formalin filled container labeled with the patient's name and designated right nasal bridge. The specimen consists of a shave biopsy measuring 0b4w1fx. Jar 0. Specimen B: Received is one formalin filled container labeled with the patient's name and designated left preauricular. The specimen consists of a curettage and desiccation biopsy measuring 5p2y1qg, 28v1y7rp, 9h2a6xp, 3i5v6qh, 2t5y5uh, 2m7b1dm and 37w2k9ks. Jar 0. 3 2:49 PM [facility] DERMATOPATHOLOGY LABORATORY Microscopic Description Specimen A. SKIN, right nasal bridge: Attached to the undersurface of the epidermis, there are small aggregates of basaloid cells with a high nuclear to cytoplasmic ratio and peripheral palisading. Specimen B. SKIN, left preauricular: Within the dermis there are nodular aggregates of basaloid cells associated with fibromyxoid stroma and epithelial-stromal clefts. At the advancing margin of the neoplasm, there are smaller angulated nests that infiltrate the dermis. There is a focus suspicious for perineural invasion seen on routine sections, however this is not confirmed on S100/pancytokeratin dual immunostain. This specimen was also reviewed by Dr. Valerie Vazquez, who agrees. 3 2:49 PM [facility] DERMATOPATHOLOGY LABORATORY Disclaimer An external and internal positive and negative controls are appropriate for the histochemical, immunohistochemical and immunofluorescence stain(s) in this case (if any), except where stated explicitly. The performance characteristics of the stain(s) cited in this report were developed and its performance characteristic determined by the Dermatopathology Laboratory at [facility], directed by Dr. Humza Purcell. These tests need not be, and therefore are not, approved by the [place] Food and Drug Administration. The tests are used for clinical purposes. Billing Codes Specimen Charges Stain Charges 01913 10434 1 1 88856 1 3 2:49 PM HUMAN GEOGRAPHY FACULTY MEMBER DERMATOPATHOLOGY LABORATORY Embedded Images 3 2:49 PM HUMAN GEOGRAPHY FACULTY MEMBER DERMATOPATHOLOGY LABORATORY Pathology/Cytology TISSUE SPECIMEN FROM SKIN / Unknown 06/14/2022 06/15/2022 4:46 PM HUMAN GEOGRAPHY FACULTY MEMBER Miscellaneous samples (specimen) TISSUE SPECIMEN FROM SKIN / Unknown 06/14/2022 06/15/2022 4:46 PM HUMAN GEOGRAPHY FACULTY MEMBER Zaid Aponte MD LAB - PATHOLOGY/CYTOLOGY ORDERAB LES Final Result DERMATOPATHOLOGY LABORATORY [facility] - Department of Dermatology [facility] Medicine [address] [place] [address], [address] [phone] documented in this encounter Visit Diagnoses Not on filedocumented in this encounter Care Teams Beam Worker Relationship Specialty Start Date End Date Darnell Blanco MD [address] [place] [address] PCP - General 06/10/11 documented as of this encounter
--- OUTSIDE RECORDS SUMMARY | 2024-08-02 11:32 | XMS_ITS | Encounter Summary ---
Author Organization [facility] Address [address] [place] [address] Care Team Providers Care Notereader Name Role Phone Darnell Blanco MD Primary Care Provider [phone] Encounter Details Date Type Department Care Team (Late st Contact Info) Description 06/21/2018 Lab Requisition [facility] [address] [place] [address] Zaid Aponte MD [address] [place] [address] Social History Tobacco Use Types Packs/Day Years Used Date Smoking Tobacco: Some Days Smokeless Tobacco: Never Alcohol Use Standard Drinks/Week Comments Yes 0 (1 standard drink = 0.6 oz pur e alcohol) Sex and Gender Information Value Date Recorded Sex Assigned at Not on file Legal Sex Male 7:04 PM SENIOR MARKETING SPECIALIST Gender Identity Not on file Sexual Orientation Not on file documented as of this encounter Plan of Treatment Not on file documented as of this encounter Procedures Procedure Name Priority Date/Time Associated Diagnosis Comments DERMATOPATHOLOGY Routine 06/19/2018 12:0 0 AM SENIOR MARKETING SPECIALIST documented in this encounter Results * DERMATOPATHOLOGY (06/19/2018 12:00 AM SENIOR MARKETING SPECIALIST) Case Report Dermatopathology Report Case: [id number] Authorizing Provider: Zaid Aponte MD Collected: 06/19/2018 12:00 AM Pathologist: Rylie Arroyo MD Received: 06/21/2018 07:20 AM Specimen: Skin, left nasal wall 12:15 PM SENIOR MARKETING SPECIALIST DERMATOPATHOLOGY LABORATORY Final Diagnosis Specimen A. SKIN, left nasal wall: BASAL CELL CARCINOMA, NODULAR TYPE (C44.311) PRESENT AT MARGIN 12:15 PM [facility] DERMATOPATHOLOGY LABORATORY Clinical History Prob BCC. Check margins. 12:15 PM [facility] DERMATOPATHOLOGY LABORATORY Gross Description Specimen A: Received is one formalin filled container labeled with the patients name and designated left nasal wall. The specimen consists of a shave removal measuring 15g77n4gm. The margin is inked green. Jar 0. 12:15 PM [facility] DERMATOPATHOLOGY LABORATORY Microscopic Description Specimen A. SKIN, left nasal wall: Within the dermis there are aggregates of basaloid cells with a high nuclear to cytoplasmic ratio and peripheral palisading. This lesion is present at the margin of the specimen. 12:15 PM [facility] DERMATOPATHOLOGY LABORATORY Disclaimer An external and internal positive and negative controls are appropriate for the histochemical, immunohistochemical and immunofluorescence stain(s) in this case (if any), except where stated explicitly. The performance characteristics of the stain(s) cited in this report were developed and its performance characteristic determined by the Dermatopathology Laboratory at [facility], directed by Dr. Humza Purcell. These tests need not be, and therefore are not, approved by the [place] Food and Drug Administration. The tests are used for clinical purposes. Billing Codes Specimen Charges Stain Charges 63263 1 9 12:15 PM [facility] DERMATOPATHOLOGY LABORATORY Embedded Images 12:15 PM [facility] DERMATOPATHOLOGY LABORATORY Pathology/Cytolog y TISSUE SPECIMEN FROM SKIN / Unknown 06/19/2018 06/21/2018 7:20 AM SENIOR MARKETING SPECIALIST us Zaid Aponte MD LAB - PATHOLOGY/CYTOLOGY ORDERAB LES Final Result DERMATOPATHOLOGY LABORATORY [facility] - Department of Dermatology [facility] [facility], [address] [place] [address], [facility] [phone] documented in this encounter Visit Diagnoses Not on filedocumented in this encounter Care Teams Notereader Relationship Specialty Start Date End Date Darnell Blanco MD [address] [place] [id number] PCP - General 06/10/11 documented as of this encounter
--- OUTSIDE RECORDS SUMMARY | 2024-08-02 11:32 | XMS_ITS | Clinical Summary ---
Author Organization [facility] Address [address] [facility] [place] [address] Care Team Providers Care Glass Cutter Helper Name Role Phone Darnell Blanco MD Primary Care Provider [phone] Source Comments [facility],non-[facility] and Associated Physician Practices is amultiple site organization consisting of ambulatory clinics and hospital sitesin [place], [place]. This disclosure is being madepursuant to the Care Everywhere program and may not contain all information available regarding this patient. Last updated 18.[facility] Family History Medical History Relation Name Comments Cancer - Skin, Non Melanoma Father Relation Name Status Comments Father Social History Tobacco Use Types Packs/Day Years Used Date Smoking Tobacco: Some Days Smokeless Tobacco: Never Alcohol Use Standard Drinks/Week Comments Yes 0 (1 standard drink = 0.6 oz pur e alcohol) Sex and Gender Information Value Date Recorded Sex Assigned at Not on file Legal Sex Male 7:04 PM LAWN SERVICE WORKER Gender Identity Not on file Sexual Orientation Not on file Plan of Treatment Health Maintenance Due Date Last Done Comments COLOGUARD (AGES 45-75) - COL ON CA SCREENING 1958 COLON MONITORING 1958 COLONOSCOPY - COLON CA SCREENING 1958 CT COLONOGRAPHY - COLON CA SCREENING 1958 Colorectal Cancer Screening 1958 FIT - COLON CA SCREENING 1958 FLEX SIG - COLON CA SCREENING 1958 LIPID TESTING 1958 MEDICARE AWV 12 MONTHS 1958 HEPATITIS C SCREENING 05/05/1976 DTAP/TDAP/TD VACCINES (1 - Tdap) 1977 PNEUMOCOCCAL VACCINE 50+ (1 of 2 - PCV) 1977 ZOSTER VACCINE (1 of 2) 2008 AAA SCREENING 2023 COVID-19 VACCINE (1 - 2023-2 5 season) 2023 DEPRESSION SCREENING 04/17/2024 INFLUENZA VACCINE (Season Ended) 2024 Respiratory Syncytial Virus (RSV) Vaccine Pt: or over 60 yrs (1 - 1-dose 75+ series) 2033 HEPATITIS B VACCINE Aged Out No longe r eligible based on patient's age to complete this topic HIB VACCINE Aged Out No longer eligi ble based on patient's age to complete this topic HPV VACCINE Aged Out No longer eligi ble based on patient's age to complete this topic MENINGOCOCCAL (Group B) VACC INE SHARED DECISION-MAKING Aged Out No longer eligibl e based on patient's age to complete this topic MENINGOCOCCAL GROUPS A/C/Y/W VACCINE Aged Out No longer eligible b ased on patient's age to complete this topic Insurance [place] [id number] MED[place] MED[place] - [place] Care Teams Glass Cutter Helper Relationship Specialty Start Date End Date Darnell Blanco MD [address] [place] [address] PCP - General 06/10/11
--- OUTSIDE RECORDS SUMMARY | 2024-08-02 11:32 | XMS_ITS | Encounter Summary ---
Author Organization [facility] Address [address] [facility] [address] Care Team Providers Care Delivery Technician Name Role Phone Darnell Blanco MD Primary Care Provider [phone] Encounter Details Date Type Department Care Team (Late st Contact Info) Description 08/04/[address] 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 - Received: 08/04/2023 09:23 AM DermPath Lab Pathologist: Sherice Barnett MD Specimens: A) - Skin, left pre-auric B) - Skin, right ant chest 4:49 PM T DERMATOPATHOLOGY LABORATORY Final Diagnosis Specimen A. SKIN, left pre-auric: BASAL CELL CARCINOMA, INFILTRATIVE PATTERN (C44.219) Specimen B. SKIN, right ant chest: SQUAMOUS CELL CARCINOMA IN SITU, PRESENT AT THE BASE OF THE SPECIMEN (D04.5) ULCER WITH SUPERFICIAL DERMAL NECROSIS (L98.499) (see microscopic description and comment) 4:49 PM T DERMATOPATHOLOGY LABORATORY Clinical History A-B: BCC 4:49 PM T DERMATOPATHOLOGY LABORATORY Gross Description Specimen A: Received is one formalin filled container labeled with the patient's name and designated left pre-auric. The specimen consists of four (4) pieces of a curettage and desiccation biopsy measuring 9x6x1, 11x7x2, 8x5x2, 7x4x2 mm. Jar 0. Specimen B: Received is one formalin filled container labeled with the patient's name and designated right ant chest. The specimen consists of four (4) pieces of a shave biopsy measuring 85r33u1, 5x3x1, 9x3x1, 5x3x1 mm. Jar 0. 4:49 PM [facility] DERMATOPATHOLOGY LABORATORY Microscopic Description Specimen A. SKIN, left pre-auric: Within the dermis there are nodular aggregates of basaloid cells associated with fibromyxoid stroma and epithelial-stromal clefts. At the advancing margin of the neoplasm, there are smaller angulated nests that infiltrate the dermis. Specimen B. SKIN, right ant chest: The epidermis shows parakeratosis, full thickness disorderly maturation of keratinocytes, mitoses at different levels, and dyskeratotic cells. The lesion extends to the base of the biopsy. There is an ulcer, beneath which there are vascular proliferation, fibroblasts, and an edematous stroma. COMMENT: An invasive squamous cell carcinoma cannot be ruled out. 4:49 PM [facility] DERMATOPATHOLOGY LABORATORY Disclaimer An external and internal positive and negative controls are appropriate for the histochemical, immunohistochemical and immunofluorescence stain(s) in this case (if any), except where stated explicitly. The performance characteristics of the stain(s) cited in this report were developed and its performance characteristic determined by the Dermatopathology Laboratory at [facility], directed by Dr. Humza Purcell. These tests need not be, and therefore are not, approved by the [place] Food and Drug Administration. The tests are used for clinical purposes. Billing Codes Specimen Charges Stain Charges 91804 42773 1 1 4 4:49 PM CDT DERMATOPATHOLOGY LABORATORY Embedded Images 4 4:49 PM CDT DERMATOPATHOLOGY LABORATORY Pathology/Cytology TISSUE SPECIMEN FROM SKIN / Unknown 08/02/2023 3:33 AM CDT 08/04/2023 9:23 AM CDT Miscellaneous samples (specimen) TISSUE SPECIMEN FROM SKIN / Unknown 08/02/2023 3:33 AM CDT 08/04/2023 9:23 AM CDT Zaid Aponte MD LAB - PATHOLOGY/CYTOLOGY ORDERAB LES Final Result DERMATOPATHOLOGY LABORATORY [facility] Department of Dermatology [facility] Specialized Medicine [address] [place] [address], [address] [phone] documented in this encounter Visit Diagnoses Not on filedocumented in this encounter Care Teams Delivery Technician Relationship Specialty Start Date End Date Darnell Blanco MD [address] [place] [address] [place] [address] PCP - General 06/10/11 documented as of this encounter
--- OUTSIDE RECORDS SUMMARY | 2024-08-02 11:32 | XMS_ITS | Encounter Summary ---
Author Organization [facility] Address [address] [facility] [place] [address] Care Team Providers Care Elevator Mechanic Apprentice Name Role Phone Darnell Blanco MD Primary Care Provider [phone] Encounter Details Date Type Department Care Team (Late st Contact Info) Description 08/12/2022 Lab Requisition [facility] Care DermPath Lab [address] [facility] 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 Gender Identity Not on file Sexual Orientation Not on file documented as of this encounter Plan of Treatment Not on file documented as of this encounter Procedures Procedure Name Priority Date/Time Associated Diagnosis Comments DERMATOPATHOLOGY Routine 08/10/2022 3:33 AM CDT documented in this encounter Results * DERMATOPATHOLOGY (08/10/2022 3:33 AM CDT) Case Report Dermatopathology Report Case: [id number] Authorizing Provider: Zaid Aponte MD Collected: 08/10/2022 03:33 AM Ordering Location: [facility] DermPath Lab Received: 08/12/2022 06:37 AM Pathologist: Valerie Vazquez MD Specimen: Skin, left superior helix 3 12:30 PM CDT DERMATOPATHOLOGY LABORATORY Final Diagnosis Specimen A. SKIN, left superior helix: BASAL CELL CARCINOMA, INFILTRATIVE PATTERN (C44.219) 3 12:30 PM CDT DERMATOPATHOLOGY LABORATORY Clinical History BCC 3 12:30 PM CDT DERMATOPATHOLOGY LABORATORY Gross Description Specimen A: Received is one formalin filled container labeled with the patient's name and designated left superior helix. The specimen consists of a shave biopsy measuring [id number]. Jar 0. 3 12:30 PM CDT DERMATOPATHOLOGY LABORATORY Microscopic Description Specimen A. SKIN, left superior helix: Within the dermis there are nodular aggregates of basaloid cells associated with fibromyxoid stroma and epithelial-stromal clefts. At the advancing margin of the neoplasm, there are smaller angulated nests that infiltrate the dermis. 3 12:30 PM CDT DERMATOPATHOLOGY LABORATORY Disclaimer An external and internal positive and negative controls are appropriate for the histochemical, immunohistochemical and immunofluorescence stain(s) in this case (if any), except where stated explicitly. The performance characteristics of the stain(s) cited in this report were developed and its performance characteristic determined by the Dermatopathology Laboratory at [facility], directed by Dr. Humza Purcell. These tests need not be, and therefore are not, approved by the [place] Food and Drug Administration. The tests are used for clinical purposes. Billing Codes Specimen Charges Stain Charges 99565 1 3 12:30 PM CDT DERMATOPATHOLOGY LABORATORY Embedded Images 3 12:30 PM CDT DERMATOPATHOLOGY LABORATORY Pathology/Cytolo gy TISSUE SPECIMEN FROM SKIN / Unknown 08/10/2022 3:33 AM CDT 08/12/2022 6:37 AM CDT Zaid Aponte MD LAB - PATHOLOGY/CYTOLOGY ORDERAB LES Final Result DERMATOPATHOLOGY LABORATORY [facility] - Department of Dermatology [address], [address] [phone] documented in this encounter Visit Diagnoses Not on filedocumented in this encounter Care Teams Elevator Mechanic Apprentice Relationship Specialty Start Date End Date Darnell Blanco MD [address] [place] [address] PCP - General 06/10/11 documented as of this encounter
--- OUTSIDE RECORDS SUMMARY | 2024-08-02 11:32 | XMS_ITS | Encounter Summary ---
Author Organization [facility] Address [address] [facility] [place] [address] Care Team Providers Care Remote Computer Terminal Operator Name Role Phone Darnell Blanco MD Primary Care Provider [phone] Encounter Details Date Type Department Care Team (Late st Contact Info) Description 08/24/2023 Lab Requisition [facility] - DermPath Lab [address] [place] [phone] Zaid Aponte MD [address] [place] [address] Social History Tobacco Use Types Packs/Day Years Used Date Smoking Tobacco: Some Days Smokeless Tobacco: Never Alcohol Use Standard Drinks/Week Comments Yes 0 (1 standard drink = 0.6 oz pur e alcohol) Sex and Gender Information Value Date Recorded Sex Assigned at Not on file 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 Gender Identity Not on file Sexual Orientation Not on file documented as of this encounter Plan of Treatment Not on file documented as of this encounter Procedures Procedure Name Priority Date/Time Associated Diagnosis Comments DERMATOPATHOLOGY Routine 08/22/2023 12:0 0 AM CDT documented in this encounter Results * DERMATOPATHOLOGY (08/22/2023 12:00 AM CDT) Case Report Dermatopathology Report Case: [id number] Authorizing Provider: Zaid Aponte MD Collected: 08/22/2023 12:00 AM Ordering Location: [facility] - Received: 08/24/2023 09:48 AM DermPath Lab Pathologist: Sherice Barnett MD Specimen: Skin, right anterior chest 12:56 PM [facility] DERMATOPATHOLOGY LABORATORY Final Diagnosis Specimen A. SKIN, right anterior chest: SQUAMOUS CELL CARCINOMA IN SITU, SUPERFICIAL FRAGMENTS OF; PRESENT AT THE BASE OF THE SPECIMEN (D04.5) HEALING SKIN CHANGES (L90.5) (see microscopic description and comment) 12:56 PM [facility] DERMATOPATHOLOGY LABORATORY Clinical History SCC in situ. See [id number] 12:56 PM [facility] DERMATOPATHOLOGY LABORATORY Gross Description Specimen A: Received is one formalin filled container labeled with the patient's name and designated right anterior chest. The specimen consists of a curettage and desiccation biopsy measuring 84o68d1 mm in aggregate. Jar 0+. 12:56 PM [facility] DERMATOPATHOLOGY LABORATORY Microscopic Description Specimen A. SKIN, right anterior chest: The specimen is fragmented and tangentially sectioned. The epidermis shows parakeratosis, full thickness disorderly maturation of keratinocytes, and dyskeratotic cells. The lesion extends to the base of the biopsy. In addition, there are fragments of skin with epidermal hyperplasia beneath which there are vascular proliferation, fibroblasts, and an edematous stroma. This lesion is present at the margin of the specimen. COMMENT: An invasive squamous cell carcinoma cannot be ruled out. 12:56 PM [facility] DERMATOPATHOLOGY LABORATORY Disclaimer An external and internal positive and negative controls are appropriate for the histochemical, immunohistochemical and immunofluorescence stain(s) in this case (if any), except where stated explicitly. The performance characteristics of the stain(s) cited in this report were developed and its performance characteristic determined by the Dermatopathology Laboratory at [facility], directed by Dr. Humza Purcell. These tests need not be, and therefore are not, approved by the [place] Food and Drug Administration. The tests are used for clinical purposes. Billing Codes Specimen Charges Stain Charges 69568 1 12:56 PM CDT DERMATOPATHOLOGY LABORATORY Embedded Images 12:56 PM [facility] DERMATOPATHOLOGY LABORATORY Pathology/Cytolog y TISSUE SPECIMEN FROM SKIN / Unknown 08/22/2023 08/24/2023 9:48 AM CDT us Zaid Aponte MD LAB - PATHOLOGY/CYTOLOGY ORDERAB LES Final Result DERMATOPATHOLOGY LABORATORY [facility] - Department of Dermatology [facility] Specialized Medicine [address] [place] [address], [address] [place] [address], [facility] [phone] documented in this encounter Visit Diagnoses Not on filedocumented in this encounter Care Teams Remote Computer Terminal Operator Relationship Specialty Start Date End Date Darnell Blanco MD [address] [place] [address] PCP - General 06/10/11 documented as of this encounter
--- OUTSIDE RECORDS SUMMARY | 2024-08-02 11:32 | XMS_ITS | Encounter Summary ---
Author Organization [facility] Address [address] [facility] [place] [address] Care Team Providers Care Airport Planner Name Role Phone Darnell Blanco MD Primary Care Provider [phone] Encounter Details Date Type Department Care Team (Late st Contact Info) Description 02/09/2023 Lab Requisition [facility] - DermPath Lab [address] [place] [phone] Zaid Aponte MD [address] [place] [address] Social History Tobacco Use Types Packs/Day Years Used Date Smoking Tobacco: Some Days Smokeless Tobacco: Never Alcohol Use Standard Drinks/Week Comments Yes 0 (1 standard drink = 0.6 oz pur e alcohol) Sex and Gender Information Value Date Recorded Sex Assigned at Not on file 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 Gender Identity Not on file Sexual Orientation Not on file documented as of this encounter Plan of Treatment Not on file documented as of this encounter Procedures Procedure Name Priority Date/Time Associated Diagnosis Comments DERMATOPATHOLOGY Routine 02/08/2023 12:0 0 AM CDT documented in this encounter Results * DERMATOPATHOLOGY (02/08/2023 12:00 AM CDT) Case Report Dermatopathology Report Case: [id number] Authorizing Provider: Zaid Aponte MD Collected: 02/08/2023 12:00 AM Ordering Location: [facility] DermPath Lab Received: 02/10/2023 05:55 AM Pathologist: Valerie Vazquez MD Specimens: A) - Skin, right nasal tip B) - Skin, left nasal tip C) - Skin, left face sup D) - Skin, left face inf 2:13 PM [facility] DERMATOPATHOLOGY LABORATORY Final Diagnosis Specimen A. SKIN, right nasal tip: SQUAMOUS CELL CARCINOMA IN SITU (BROWN'S DISEASE) (D04.39) Specimen B. 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 SKIN, left face sup: BASAL CELL CARCINOMA, INFILTRATIVE PATTERN (C44.319) Specimen D. SKIN, left face inf: BASAL CELL CARCINOMA, INFILTRATIVE PATTERN (C44.319) 2:13 PM [facility] DERMATOPATHOLOGY LABORATORY Clinical History A-D: BCC-SCC 2:13 PM [facility] DERMATOPATHOLOGY LABORATORY Gross Description Specimen A: Received is one formalin filled container labeled with the patient's name and designated right nasal tip. The specimen consists of a shave biopsy measuring 7x4x1 mm. Jar 0. Specimen B: Received is one formalin filled container labeled with the patient's name and designated left nasal tip. The specimen consists of a shave biopsy measuring 7x6x1 mm. Jar 0. Specimen C: Received is one formalin filled container labeled with the patient's name and designated left face sup. The specimen consists of a curettage and desiccation biopsy measuring 42w58h6 mm. Jar 0. Specimen D: Received is one formalin filled container labeled with the patient's name and designated left face inf. The specimen consists of a curettage and desiccation biopsy measuring 7x4x1 mm. Jar 0. 2:13 PM [facility] DERMATOPATHOLOGY LABORATORY Microscopic Description Specimen A. SKIN, right nasal tip: The epidermis shows parakeratosis, full thickness disorderly maturation of keratinocytes, mitoses at different levels, and dyskeratotic cells. Specimen B. SKIN, left nasal tip: There is focal parakeratosis. The lower half of the epidermis shows disorderly maturation of keratinocytes with nuclear pleomorphism. Focally there is a suprabasilar cleft with acantholytic cells. Specimen C. SKIN, left face sup: Within the dermis there are nodular aggregates of basaloid cells associated with fibromyxoid stroma and epithelial-stromal clefts. At the advancing margin of the neoplasm, there are smaller angulated nests that infiltrate the dermis. Specimen D. SKIN, left face inf: Within the dermis there are nodular aggregates of basaloid cells associated with fibromyxoid stroma and epithelial-stromal clefts. At the advancing margin of the neoplasm, there are smaller angulated nests that infiltrate the dermis. 3 2:13 PM CDT DERMATOPATHOLOGY LABORATORY Disclaimer An external and internal positive and negative controls are appropriate for the histochemical, immunohistochemical and immunofluorescence stain(s) in this case (if any), except where stated explicitly. The performance characteristics of the stain(s) cited in this report were developed and its performance characteristic determined by the Dermatopathology Laboratory at [facility], directed by Dr. Humza Purcell. These tests need not be, and therefore are not, approved by the [place] Food and Drug Administration. The tests are used for clinical purposes. Billing Codes Specimen Charges Stain Charges 62888 56877 07610 05738 1 1 1 1 3 2:13 PM CDT DERMATOPATHOLOGY LABORATORY Embedded Images 3 2:13 PM CDT DERMATOPATHOLOGY LABORATORY Pathology/Cytology TISSUE SPECIMEN FROM SKIN / Unknown 02/08/2023 02/10/2023 5:55 AM CDT Miscellaneous samples (specimen) TISSUE SPECIMEN FROM SKIN / Unknown 02/08/2023 02/10/2023 5:55 AM CDT Miscellaneous samples (specimen) TISSUE SPECIMEN FROM SKIN / Unknown 02/08/2023 02/10/2023 5:55 AM CDT Miscellaneous samples (specimen) TISSUE SPECIMEN FROM SKIN / Unknown 02/08/2023 02/10/2023 5:55 AM CDT us Zaid Aponte MD LAB - PATHOLOGY/CYTOLOGY ORDERAB LES Final Result DERMATOPATHOLOGY LABORATORY [facility] - Department of Dermatology [facility] Medicine [address] [place] [address], [address] [place] [address], [facility] [phone] documented in this encounter Visit Diagnoses Not on filedocumented in this encounter Care Teams Airport Planner Relationship Specialty Start Date End Date Darnell Blanco MD [address] [place] [address] PCP - General 06/10/11 documented as of this encounter
[2024-08-02 11:46] LABS: Basophils Absolute Auto 0.1 K/mm3 (0.0-0.1); Basophils Percent Auto 0.6 % (0.2-1.2); Eosinophils Absolute Auto 0.1 K/mm3 (0-0.3); Eosinophils Percent Auto 0.6 % (0-4.4); Hematocrit 47.1 % (42.0-52.0); Immature Granulocyte Absolute 0.05 K/mm3 (0.00-0.031); Immature Granulocyte Percent A 0.5 % (0-0.5); Lymphocytes Absolute Auto 3.28 K/mm3 (0.9-3.2); Lymphocytes Percent Auto 29.6 % (18.3-44.2); Mean Corpuscular Hemoglobin 32.5 pg (26-34); Mean Corpuscular Volume 95.7 fl (80-100); Mean Platelet Volume 9.3 fl (7.4-10.4); Monocytes Absolute Auto 1.2 K/mm3 (0.1-0.6); Monocytes Percent Auto 10.5 % (2.6-8.5); Neutrophils Absolute Auto 6.5 K/mm3 (1.3-6.7); Neutrophils Percent Auto 58.2 % (45.5-73.1); Platelet Count Result 253 k/mm3 (150-375); Red Blood Count 4.92 M/mm3 (4.6-6.20); Red Cell Distribution Width 14.6 % (11.5-14.5); White Blood Count 11.1 K/mm3 (4.5-10.0)
[2024-08-02 12:02] LABS: Alanine Aminotransferase 21 U/L (6-50); Albumin Level 4.5 g/dL (3.5-5.1); Alkaline Phosphatase 67 U/L (38-126); Anion Gap 8 mmol/L (4-12); Aspartate Amino Transferase 26 U/L (17-59); Bilirubin,Total 0.5 mg/dL (0.2-1.3); Blood Urea Nitrogen 15 mg/dL (9-20); Calcium 9.5 mg/dL (8.4-10.2); Carbon Dioxide 27 mmol/L (22-30); Chloride 104 mmol/L (98-107); Cholesterol 218 mg/dL (0-200); Estimated Glomerular Filt Rate > 60; Glucose 95 mg/dL (65-110); HDL Direct 70 mg/dL; Potassium 4.1 mmol/L (3.4-5.0); Sodium 139 mmol/L (137-145); Triglycerides 213 mg/dL (<150)
[2024-08-02 12:13] LABS: LDL Cholesterol Direct 100 mg/dL
[2024-08-02 12:30] LABS: Prostate Specific Antigen 0.4 ng/mL (< OR = 4.0)
[2024-08-02 13:05] LABS: Hepatitis C Virus Antibody Negative (Negative)
== END 2024-08-02 11:24 | disposition home or self-care (01) ==
LOC: ANHLAB 11:25
PROVIDERS: PCP Family Medicine; Visit Provider Registered Nurse
DX: E78.5 Hyperlipidemia, unspecified (principal); I10 Essential (primary) hypertension; Z12.5 Encounter for screening for malignant neoplasm of prostate; Z11.59 Encounter for screening for other viral diseases
CPT/HCPCS: 36415; 80053; 80061; 84153; 85025; 86803; G0103

== ENCOUNTER 2024-10-31 13:22 | Outpatient (CLI) | payer MEDICARE, MEDICAID, SELFPAY ==
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
--- OUTSIDE RECORDS SUMMARY | 2024-10-31 13:28 | XMS_ITS | Encounter Summary ---
Author Organization [facility] Address [address] [facility] [place] [address] Care Team Providers Care X Ray Consultant Name Role Phone Darnell Blanco MD Primary Care Provider [phone] Encounter Details Date Type Department Care Team (Late st Contact Info) Description 06/21/2018 Lab Requisition [facility] [address] [facility] [place] [address] Zaid Aponte MD [address] [place] [address] Social History Tobacco Use Types Packs/Day Years Used Date Smoking Tobacco: Some Days Smokeless Tobacco: Never Alcohol Use Standard Drinks/Week Comments Yes 0 (1 standard drink = 0.6 oz pur e alcohol) Sex and Gender Information Value Date Recorded Sex Assigned at Not on file 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 Gender Identity Not on file Sexual Orientation Not on file documented as of this encounter Plan of Treatment Not on file documented as of this encounter Procedures Procedure Name Priority Date/Time Associated Diagnosis Comments DERMATOPATHOLOGY Routine 06/19/2018 12:0 0 AM TRAINMAN documented in this encounter Results * DERMATOPATHOLOGY (06/19/2018 12:00 AM TRAINMAN) Case Report Dermatopathology Report Case: [id number] Authorizing Provider: Zaid Aponte MD Collected: 06/19/2018 12:00 AM Pathologist: Rylie Arroyo MD Received: 06/21/2018 07:20 AM Specimen: Skin, left nasal wall 12:15 PM TRAINMAN DERMATOPATHOLOGY LABORATORY Final Diagnosis Specimen A. SKIN, left nasal wall: BASAL CELL CARCINOMA, NODULAR TYPE (C44.311) PRESENT AT MARGIN 12:15 PM [facility] DERMATOPATHOLOGY LABORATORY at 1215 TRAINMAN Clinical History Prob BCC. Check margins. 12:15 PM [facility] DERMATOPATHOLOGY LABORATORY Gross Description Specimen A: Received is one formalin filled container labeled with the patients name and designated left nasal wall. The specimen consists of a shave removal measuring [id number]. The margin is inked green. Jar 0. 12:15 PM [facility] DERMATOPATHOLOGY LABORATORY Microscopic Description Specimen A. SKIN, left nasal wall: Within the dermis there are aggregates of basaloid cells with a high nuclear to cytoplasmic ratio and peripheral palisading. This lesion is present at the margin of the specimen. 12:15 PM [facility] DERMATOPATHOLOGY LABORATORY Disclaimer An external and internal positive and negative controls are appropriate for the histochemical, immunohistochemical and immunofluorescence stain(s) in this case (if any), except where stated explicitly. The performance characteristics of the stain(s) cited in this report were developed and its performance characteristic determined by the Dermatopathology Laboratory at [facility], directed by Dr. Humza Purcell. These tests need not be, and therefore are not, approved by the [place] Food and Drug Administration. The tests are used for clinical purposes. Billing Codes Specimen Charges Stain Charges 11430 1 12:15 PM [facility] DERMATOPATHOLOGY LABORATORY Embedded Images 12:15 PM [facility] DERMATOPATHOLOGY LABORATORY Pathology/Cytolog y TISSUE SPECIMEN FROM SKIN / Unknown 06/19/2018 06/21/2018 7:20 AM TRAINMAN us Zaid Aponte MD LAB - PATHOLOGY/CYTOLOGY ORDERAB LES Final Result DERMATOPATHOLOGY LABORATORY [facility] - Department of Dermatology [address] [facility], [address]th [place] [address], [facility] [phone] documented in this encounter Visit Diagnoses Not on filedocumented in this encounter Care Teams X Ray Consultant Relationship Specialty Start Date End Date Darnell Blanco MD [address] [place] [address] PCP - General 06/10/11 documented as of this encounter
--- OUTSIDE RECORDS SUMMARY | 2024-10-31 13:29 | XMS_ITS | Clinical Summary ---
Author Organization [facility] Address [address] [facility] [place] [address] Care Team Providers Care Terminal Gauger Supervisor Name Role Phone Darnell Blanco MD Primary Care Provider Source Comments [facility],non-[facility] Affiliates and Associated Physician Practices is amultiple site organization consisting of ambulatory clinics and hospital sitesin [place], [place] and [place]. This disclosure is being madepursuant to the Care Everywhere program and may not contain all information available regarding this patient. Last updated 18.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
--- OUTSIDE RECORDS SUMMARY | 2024-10-31 13:29 | XMS_ITS | Encounter Summary ---
Author Organization [facility] Address [address] [facility] [place] [address] Care Team Providers Care Service Observer Chief Name Role Phone Darnell Blanco MD Primary Care Provider [phone] Encounter Details Date Type Department Care Team (Late st Contact Info) Description 08/04/2023 Lab Requisition [facility] - DermPath Lab [address] [place] [address] Zaid Aponte MD [address] [place] [address] Social History Tobacco Use Types Packs/Day Years Used Date Smoking Tobacco: Some Days Smokeless Tobacco: Never Alcohol Use Standard Drinks/Week Comments Yes 0 (1 standard drink = 0.6 oz pur e alcohol) Sex and Gender Information Value Date Recorded Sex Assigned at Not on file 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 Gender Identity Not on file Sexual Orientation Not on file documented as of this encounter Plan of Treatment Not on file documented as of this encounter Procedures Procedure Name Priority Date/Time Associated Diagnosis Comments DERMATOPATHOLOGY Routine 08/02/2023 3:33 AM CDT documented in this encounter Results * DERMATOPATHOLOGY (08/02/2023 3:33 AM CDT) Case Report Dermatopathology Report Case: [id number] Authorizing Provider: Zaid Aponte MD Collected: 08/02/2023 03:33 AM Ordering Location: [facility] - Received: 08/04/2023 09:23 AM DermPath Lab Pathologist: Sherice Barnett MD Specimens: A) - Skin, left pre-auric B) - Skin, right ant chest 4:49 PM CDT DERMATOPATHOLOGY LABORATORY Final Diagnosis Specimen A. SKIN, left pre-auric: BASAL CELL CARCINOMA, INFILTRATIVE PATTERN (C44.219) Specimen B. SKIN, right ant chest: SQUAMOUS CELL CARCINOMA IN SITU, PRESENT AT THE BASE OF THE SPECIMEN (D04.5) ULCER WITH SUPERFICIAL DERMAL NECROSIS (L98.499) (see microscopic description and comment) 4:49 PM CDT DERMATOPATHOLOGY LABORATORY at 1649 CDT Clinical History A-B: BCC 4:49 PM CDT DERMATOPATHOLOGY LABORATORY Gross Description Specimen [...] (4) pieces of a shave biopsy measuring [id number], 5x3x1, 9x3x1, 5x3x1 mm. Jar 0. 4:49 PM CDT DERMATOPATHOLOGY LABORATORY Microscopic Description Specimen [...] carcinoma cannot be ruled out. 4:49 PM CDT DERMATOPATHOLOGY LABORATORY Disclaimer An external and internal positive and negative controls are appropriate for the histochemical, immunohistochemical and immunofluorescence stain(s) in this case (if any), except where stated explicitly. The performance characteristics of the stain(s) cited in this report were developed and its performance characteristic determined by the Dermatopathology Laboratory at [facility], directed by Dr. Humza Purcell. These tests need not be, and therefore are not, approved by the [place] Food and Drug Administration. The tests are used for clinical purposes. Billing Codes Specimen Charges Stain Charges 32066 73748 1 1 4 4:49 PM CDT DERMATOPATHOLOGY LABORATORY Embedded Images 4 4:49 PM CDT DERMATOPATHOLOGY LABORATORY Pathology/Cytology TISSUE SPECIMEN FROM SKIN / Unknown 08/02/2023 3:33 AM CDT 08/04/2023 9:23 AM CDT Miscellaneous samples (specimen) TISSUE SPECIMEN FROM SKIN / Unknown 08/02/2023 3:33 AM CDT 08/04/2023 9:23 AM CDT Zaid Aponte MD LAB - PATHOLOGY/CYTOLOGY ORDERAB LES Final Result DERMATOPATHOLOGY LABORATORY [facility] Department of Dermatology [facility] Medicine [address] [place] [address], [address] [phone] documented in this encounter Visit Diagnoses Not on filedocumented in this encounter Care Teams Service Observer Chief Relationship Specialty Start Date End Date Darnell Blanco MD [address] [place] [address] [place] [address] PCP - General 06/10/11 documented as of this encounter
--- OUTSIDE RECORDS SUMMARY | 2024-10-31 13:29 | XMS_ITS | Encounter Summary ---
Author Organization [facility] Address [address] [facility] [address] Care Team Providers Care Ethanol Maintenance Mechanic Name Role Phone Darnell Blanco MD Primary Care Provider [phone] Encounter Details Date Type Department Care Team (Late st Contact Info) Description 02/09/2023 Lab Requisition [facility] - DermPath Lab [address] [place] [phone] Zaid Aponte MD [address] [place] [address] Social History Tobacco Use Types Packs/Day Years Used Date Smoking Tobacco: Some Days Smokeless Tobacco: Never Alcohol Use Standard Drinks/Week Comments Yes 0 (1 standard drink = 0.6 oz pur e alcohol) Sex and Gender Information Value Date Recorded Sex Assigned at Not on file 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 Gender Identity Not on file Sexual Orientation Not on file documented as of this encounter Plan of Treatment Not on file documented as of this encounter Procedures Procedure Name Priority Date/Time Associated Diagnosis Comments DERMATOPATHOLOGY Routine 02/08/2023 12:0 0 AM CDT documented in this encounter Results * DERMATOPATHOLOGY (02/08/2023 12:00 AM CDT) Case Report Dermatopathology Report Case: [id number] Authorizing Provider: Zaid Aponte MD Collected: 02/08/2023 12:00 AM Ordering Location: [facility] DermPath Lab Received: 02/10/2023 05:55 AM Pathologist: Valerie Vazquez MD Specimens: A) - Skin, right nasal tip B) - Skin, left nasal tip C) - Skin, left face sup D) - Skin, left face inf 3 2:13 PM T DERMATOPATHOLOGY LABORATORY Final Diagnosis Specimen A. SKIN, right nasal tip: SQUAMOUS CELL CARCINOMA IN SITU (BROWN'S DISEASE) (D04.39) Specimen B. 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 SKIN, left face sup: BASAL CELL CARCINOMA, INFILTRATIVE PATTERN (C44.319) Specimen D. SKIN, left face inf: BASAL CELL CARCINOMA, INFILTRATIVE PATTERN (C44.319) 3 2:13 PM T DERMATOPATHOLOGY LABORATORY at 1413 CDT Clinical History A-D: BCC-SCC 2:13 PM T DERMATOPATHOLOGY LABORATORY Gross Description Specimen [...] of a curettage and desiccation biopsy measuring 87u89u2 mm. Jar 0. Specimen D: Received is one formalin filled container labeled with the patient's name and designated left face inf. The specimen consists of a curettage and desiccation biopsy measuring 7x4x1 mm. Jar 0. 3 2:13 PM CDT DERMATOPATHOLOGY LABORATORY Microscopic Description Specimen [...] by the Dermatopathology Laboratory at [facility], directed by Dr. Humza Purcell. These tests need not be, and therefore are not, approved by the [place] Food and Drug Administration. The tests are used for clinical purposes. Billing Codes Specimen Charges Stain Charges 17117 84121 50539 64736 1 1 1 1 3 2:13 PM [...] PATHOLOGY/CYTOLOGY ORDERAB LES Final Result DERMATOPATHOLOGY LABORATORY [facility] - Department of Dermatology [facility] [address] [place] [address], [address] [place] [address], [facility] [phone] documented in this encounter Visit Diagnoses Not on filedocumented in this encounter Care Teams Ethanol Maintenance Mechanic Relationship Specialty Start Date End Date Darnell Blanco MD [address] [place] [address] PCP - General 06/10/11 documented as of this encounter
--- OUTSIDE RECORDS SUMMARY | 2024-10-31 13:29 | XMS_ITS | Clinical Summary ---
Author Organization [facility] Address [facility] [place] [address] Care Team Providers Care Cow Rider Name Role Phone Dank De Jesus MD Primary Care Provider [phone] Medications HYDROcodone-mayela taminophen (NORCO) 10-325 MG tablet [...] 12:00 PM CDT Height 185.4 cm (6' 1) 02/14/2022 12:00 PM CDT Body Mass Index 24.28 02/14/2022 12:00 PM CDT Plan of Treatment Health Maintenance Due Date Last Done Comments Colorectal Cancer Screening Colonoscopy (10 Years) 1958 Hepatitis C 1976 DTaP, Tdap and Td Vaccines ( 1 - Tdap) 1977 Pneumococcal Vaccine: 50+ Ye ars (1 of 1 - PCV) 2008 Zoster Vaccines (1 of 2) 2008 Annual Medicare Wellness Visit 2023 COVID-19 Vaccine ( - 2023-2 5 [...] to complete this topic Insurance MEDICARE MEDICAID Care Teams Cow Rider Relationship Specialty Start Date End Date Dank De Jesus MD [address] [place] [address] PCP - General FAMILY PRACTICE 03/23/22
--- OUTSIDE RECORDS SUMMARY | 2024-10-31 13:29 | XMS_ITS | Encounter Summary ---
Author Organization [facility] Address [address] [facility] [place] [address] Care Team Providers Care Mva Reactor Operator Name Role Phone Darnell Blanco MD Primary Care Provider [phone] Encounter Details Date Type Department Care Team (Late st Contact Info) Description 08/24/[address] 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 - Received: 08/24/2023 09:48 AM DermPath Lab Pathologist: Sherice Barnett MD Specimen: Skin, right anterior chest 12:56 PM T DERMATOPATHOLOGY LABORATORY Final Diagnosis Specimen A. SKIN, right anterior chest: SQUAMOUS CELL CARCINOMA IN SITU, SUPERFICIAL FRAGMENTS OF; PRESENT AT THE BASE OF THE SPECIMEN (D04.5) HEALING SKIN CHANGES (L90.5) (see microscopic description and comment) 12:56 PM T DERMATOPATHOLOGY LABORATORY at 1256 CDT Clinical History SCC in situ. See [id number] 12:56 PM T DERMATOPATHOLOGY LABORATORY Gross Description Specimen A: Received is one formalin filled container labeled with the patient's name and designated right anterior chest. The specimen consists of a curettage and desiccation biopsy measuring 14j72f1 mm in aggregate. Jar 0+. 12:56 PM CDT DERMATOPATHOLOGY LABORATORY Microscopic Description Specimen [...] carcinoma cannot be ruled out. 12:56 PM T DERMATOPATHOLOGY LABORATORY Disclaimer An external and internal [...] purposes. Billing Codes Specimen Charges Stain Charges 77344 1 12:56 PM CDT DERMATOPATHOLOGY LABORATORY Embedded Images 12:56 PM CDT DERMATOPATHOLOGY LABORATORY Pathology/Cytolog y TISSUE SPECIMEN FROM SKIN / Unknown 08/22/2023 08/24/2023 9:48 AM CDT us Zaid Aponte MD LAB - PATHOLOGY/CYTOLOGY ORDERAB LES Final Result DERMATOPATHOLOGY LABORATORY [facility] - Department of Dermatology [facility] Specialized Medicine [address] [place] [address], [address]rd [place] [address], [facility] [phone] documented in this encounter Visit Diagnoses Not on filedocumented in this encounter Care Teams Mva Reactor Operator Relationship Specialty Start Date End Date Darnell Blanco MD [address] [place] [address] PCP - General 06/10/11 documented as of this encounter
--- OUTSIDE RECORDS SUMMARY | 2024-10-31 13:29 | XMS_ITS | Continuity of Care Document ---
Author Organization [facility] Address [address] [place] [address] Phone Care Team Providers Care Morgue Attendant Name Role Phone Suresh, Edward Unavailable Unavailable Advance Directives Directive Yes / No Effective Date File Name No Information Encounters Encounter Description Practice Location Reason(s) For Visit Diagnoses Date Provider Providers Copied on Encounter [facility], [address], [place], [place], [id number], [place] tel:[phone] [facility] No Information Mar-3 1-200 0 Doisy Edward. [address] , [address], [place], [address], [place]. tel:[phone] Family History Family Member Type Diagnosis Age At Onset No Information Payers Payer name Insurance type Covered constitution party ID Authoriza tion(s) No Information Social History Type Description Quantity Date Captured Comments Sex Male Smoking Status No Information Chief Complaint And Reason For Visit No Information Reason For Referral Reason For Referral No Information History Of Present Illness Encounter Date Complaint History Of Prese nt Illness No Information Functional Status Date Functional Assessmen t No Information Instructions Date Instruction Additional Infor mation No Information Assessments Type Assessment Date No Information Patient Care Teams Name Effective Dates (start - stop) Status Members No Information
--- OUTSIDE RECORDS SUMMARY | 2024-10-31 13:29 | XMS_ITS | Encounter Summary ---
Author Organization [facility] Address [address] [place] [address] Care Team Providers Care Central Office Supervisor Name Role Phone Darnell Blanco MD Primary Care Provider [phone] Encounter Details Date Type Department Care Team (Late st Contact Info) Description 07/21/2022 Lab Requisition [facility] Care DermPath Lab [address] [facility] [place] [address] Zaid Aponte MD [facility] [place] [address] Social History Tobacco Use Types Packs/Day Years Used Date Smoking Tobacco: Some Days Smokeless Tobacco: Never Alcohol Use Standard Drinks/Week Comments Yes 0 (1 standard drink = 0.6 oz pur e alcohol) Sex and Gender Information Value Date Recorded Sex Assigned at Not on file 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 Gender Identity Not on file Sexual Orientation Not on file documented as of this encounter Plan of Treatment Not on file documented as of this encounter Procedures Procedure Name Priority Date/Time Associated Diagnosis Comments DERMATOPATHOLOGY Routine 07/20/2022 12:0 0 AM CDT documented in this encounter Results * DERMATOPATHOLOGY (07/20/2022 12:00 AM CDT) Case Report Dermatopathology Report Case: [id number] Authorizing Provider: Zaid Aponte MD Collected: 07/20/2022 12:00 AM Ordering Location: [facility] DermPath Lab Received: 07/21/2022 04:15 PM Pathologist: Valerie Vazquez MD Specimen: Skin, right nasal bridge 3 1:45 PM CDT DERMATOPATHOLOGY LABORATORY Final Diagnosis Specimen A. SKIN, right nasal bridge: DERMAL SCAR, PRESENT AT MARGIN RESIDUAL BASAL CELL CARCINOMA NOT IDENTIFIED (L90.5) 3 1:45 PM CDT DERMATOPATHOLOGY LABORATORY at 1345 CDT Clinical History Bx proven BCC 3 1:45 PM CDT DERMATOPATHOLOGY LABORATORY Gross Description [...] present at the base of the specimen. 3 1:45 PM CDT DERMATOPATHOLOGY LABORATORY Disclaimer An external and internal positive and negative controls are appropriate for the histochemical, immunohistochemical and immunofluorescence stain(s) in this case (if any), except where stated explicitly. The performance characteristics of the stain(s) cited in this report were developed and its performance characteristic determined by the Dermatopathology Laboratory at [facility], directed by Dr. Humza Purcell. These tests need not be, and therefore are not, approved by the [place] Food and Drug Administration. The tests are used for clinical purposes. Billing Codes Specimen Charges Stain Charges 56021 1 3 1:45 PM CDT DERMATOPATHOLOGY LABORATORY Embedded Images 3 1:45 PM CDT DERMATOPATHOLOGY LABORATORY Pathology/Cytolog y TISSUE SPECIMEN FROM SKIN / Unknown 07/20/2022 07/21/2022 4:15 PM CDT Zaid Aponte MD LAB - PATHOLOGY/CYTOLOGY ORDERAB LES Final Result DERMATOPATHOLOGY LABORATORY [facility] - Department of Dermatology [address], [address] [phone] documented in this encounter Visit Diagnoses Not on filedocumented in this encounter Care Teams Central Office Supervisor Relationship Specialty Start Date End Date Darnell Blanco MD [address] [place] [address] PCP - General 06/10/11 documented as of this encounter
--- OUTSIDE RECORDS SUMMARY | 2024-10-31 13:29 | XMS_ITS | Encounter Summary ---
Author Organization [facility] Address [address] [facility] [place] [address] Care Team Providers Care Aircraft Structure Mechanic Name Role Phone Darnell Blanco MD Primary Care Provider [phone] Encounter Details Date Type Department Care Team (Late st Contact Info) Description 06/15/2022 Lab Requisition [facility] DermPath Lab [address] [facility] [place] [phone] Zaid Aponte MD [facility] [place] [address] Social History Tobacco Use Types Packs/Day Years Used Date Smoking Tobacco: Some Days Smokeless Tobacco: Never Alcohol Use Standard Drinks/Week Comments Yes 0 (1 standard drink = 0.6 oz pur e alcohol) Sex and Gender Information Value Date Recorded Sex Assigned at Not on file 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 Gender Identity Not on file Sexual Orientation Not on file documented as of this encounter Plan of Treatment Not on file documented as of this encounter Procedures Procedure Name Priority Date/Time Associated Diagnosis Comments DERMATOPATHOLOGY Routine 06/14/2022 12:0 0 AM COLLAR CUTTER documented in this encounter Results * DERMATOPATHOLOGY (06/14/2022 12:00 AM COLLAR CUTTER) Case Report Dermatopathology Report Case: [id number] Authorizing Provider: Zaid Aponte MD Collected: 06/14/2022 12:00 AM Ordering Location: [facility] DermPath Lab Received: 06/15/2022 04:46 PM Pathologist: Sherice Barnett MD Specimens: A) - Skin, right nasal bridge B) - Skin, left preauricular 3 2:49 PM [facility] DERMATOPATHOLOGY LABORATORY Final Diagnosis Specimen A. SKIN, right nasal bridge: BASAL CELL CARCINOMA, SUPERFICIAL MULTIFOCAL (C44.311) Specimen B. SKIN, left preauricular: BASAL CELL CARCINOMA, INFILTRATIVE PATTERN (C44.319) (see microscopic description) 3 2:49 PM [facility] DERMATOPATHOLOGY LABORATORY at [address] [facility] Clinical History A-B: Erosion R/O BCC 3 2:49 PM [facility] DERMATOPATHOLOGY LABORATORY Gross Description Specimen A: Received is one formalin filled container labeled with the patient's name and designated right nasal bridge. The specimen consists of a shave biopsy measuring 1y8x1af. Jar 0. Specimen B: Received is one formalin filled container labeled with the patient's name and designated left preauricular. The specimen consists of a curettage and desiccation biopsy measuring 1q5i6qa, 24x6c3sj, 3f8r5jj, 5h4x5jk, 3c8j8gc, 7z1b4nf and 63v7b2ez. Jar 0. 3 2:49 PM [facility] DERMATOPATHOLOGY LABORATORY Microscopic Description Specimen A. SKIN, [...] Valerie Vazquez, who agrees. 3 2:49 PM [facility] DERMATOPATHOLOGY LABORATORY Disclaimer An external and internal positive and negative controls are appropriate for the histochemical, immunohistochemical and immunofluorescence stain(s) in this case (if any), except where stated explicitly. The performance characteristics of the stain(s) cited in this report were developed and its performance characteristic determined by the Dermatopathology Laboratory at [facility], directed by Dr. Humza Purcell. These tests need not be, and therefore are not, approved by the [place] Food and Drug Administration. The tests are used for clinical purposes. Billing Codes Specimen Charges Stain Charges 48101 85190 1 1 93962 1 3 2:49 PM COLLAR CUTTER DERMATOPATHOLOGY LABORATORY Embedded Images 3 2:49 PM COLLAR CUTTER DERMATOPATHOLOGY LABORATORY Pathology/Cytology TISSUE SPECIMEN FROM SKIN / Unknown 06/14/2022 06/15/2022 4:46 PM COLLAR CUTTER Miscellaneous samples (specimen) TISSUE SPECIMEN FROM SKIN / Unknown 06/14/2022 06/15/2022 4:46 PM COLLAR CUTTER Zaid Aponte MD LAB - PATHOLOGY/CYTOLOGY ORDERAB LES Final Result DERMATOPATHOLOGY LABORATORY [facility] - Department of Dermatology [facility] Medicine [address] [place] [address], [address] [phone] documented in this encounter Visit Diagnoses Not on filedocumented in this encounter Care Teams Aircraft Structure Mechanic Relationship Specialty Start Date End Date Darnell Blanco MD [address] [place] [address] PCP - General 06/10/11 documented as of this encounter
--- OUTSIDE RECORDS SUMMARY | 2024-10-31 13:29 | XMS_ITS | Encounter Summary ---
Author Organization [facility] Address [address] [facility] [place] [address] Care Team Providers Care Fashion Artist Name Role Phone Darnell Blanco MD Primary Care Provider [phone] Encounter Details Date Type Department Care Team (Late st Contact Info) Description 08/12/2022 Lab Requisition [facility] Care DermPath Lab [address] [facility] [place] [address] Zaid Aponte MD [facility] [place] [address] Social History Tobacco Use Types Packs/Day Years Used Date Smoking Tobacco: Some Days Smokeless Tobacco: Never Alcohol Use Standard Drinks/Week Comments Yes 0 (1 standard drink = 0.6 oz pur e alcohol) Sex and Gender Information Value Date Recorded Sex Assigned at Not on file 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 Gender Identity Not on file Sexual Orientation Not on file documented as of this encounter Plan of Treatment Not on file documented as of this encounter Procedures Procedure Name Priority Date/Time Associated Diagnosis Comments DERMATOPATHOLOGY Routine 08/10/2022 3:33 AM CDT documented in this encounter Results * DERMATOPATHOLOGY (08/10/2022 3:33 AM CDT) Case Report Dermatopathology Report Case: [id number] Authorizing Provider: Zaid Aponte MD Collected: 08/10/2022 03:33 AM Ordering Location: [facility] DermPath Lab Received: 08/12/2022 06:37 AM Pathologist: Valerie Vazquez MD Specimen: Skin, left superior helix 3 12:30 PM CDT DERMATOPATHOLOGY LABORATORY Final Diagnosis Specimen A. SKIN, left superior helix: BASAL CELL CARCINOMA, INFILTRATIVE PATTERN (C44.219) 3 12:30 PM CDT DERMATOPATHOLOGY LABORATORY at 1230 CDT Clinical History BCC 3 12:30 PM CDT DERMATOPATHOLOGY LABORATORY Gross Description Specimen A: Received is one formalin filled container labeled with the patient's name and designated left superior helix. The specimen consists of a shave biopsy measuring 46n4i1ng. Jar 0. 3 12:30 PM CDT DERMATOPATHOLOGY [...] characteristic determined by the Dermatopathology Laboratory at [facility], directed by Dr. Humza Purcell. These tests need not be, and therefore are not, approved by the [place] Food and Drug Administration. The tests are used for clinical purposes. Billing Codes Specimen Charges Stain Charges 00112 1 3 12:30 PM CDT DERMATOPATHOLOGY LABORATORY Embedded Images 3 12:30 PM CDT DERMATOPATHOLOGY LABORATORY Pathology/Cytolo gy TISSUE SPECIMEN FROM SKIN / Unknown 08/10/2022 3:33 AM CDT 08/12/2022 6:37 AM CDT Zaid Aponte MD LAB - PATHOLOGY/CYTOLOGY ORDERAB LES Final Result DERMATOPATHOLOGY LABORATORY [facility] - Department of Dermatology [address], [address] [phone] documented in this encounter Visit Diagnoses Not on filedocumented in this encounter Care Teams Fashion Artist Relationship Specialty Start Date End Date Darnell Blanco MD [address] [place] [address] PCP - General 06/10/11 documented as of this encounter
== END 2024-10-31 13:23 | disposition home or self-care (01) ==
PROVIDERS: PCP Family Medicine; Visit Provider Nurse Practitioner Family
DX: M47.816 Spondylosis without myelopathy or radiculopathy, lumbar region (principal); M51.34 Other intervertebral disc degeneration, thoracic region; E27.8 Other specified disorders of adrenal gland; R10.11 Right upper quadrant pain; M51.9 Unspecified thoracic, thoracolumbar and lumbosacral intervertebral disc disorder; M41.86 Other forms of scoliosis, lumbar region; N28.1 Cyst of kidney, acquired
CPT/HCPCS: 71250; 72131; 74150

== ENCOUNTER 2025-01-01 09:56 | Outpatient (CLI) | payer MEDICARE, MEDICAID, SELFPAY ==
[2025-01-01 10:33] LABS: Hematocrit 47.2 % (42.0-52.0); Hemoglobin 15.9 g/dL (14.0-18.0); Mean Corpuscular HGB Conc 33.7 g/dl (32-36); Mean Corpuscular Hemoglobin 32.1 pg (26-34); Mean Corpuscular Volume 95.4 fl (80-100); Platelet Count Result 256 k/mm3 (150-375); Red Blood Count 4.95 M/mm3 (4.6-6.20); White Blood Count 10.8 K/mm3 (4.5-10.0)
[2025-01-01 10:55] LABS: Alanine Aminotransferase 19 U/L (6-50); Albumin Level 4.1 g/dL (3.5-5.1); Alkaline Phosphatase 68 U/L (38-126); Anion Gap 5 mmol/L (4-12); Aspartate Amino Transferase 29 U/L (17-59); Bilirubin,Total 0.4 mg/dL (0.2-1.3); Blood Urea Nitrogen 19 mg/dL (9-20); Calcium 9.1 mg/dL (8.4-10.2); Carbon Dioxide 26 mmol/L (22-30); Chloride 106 mmol/L (98-107); Cholesterol 187 mg/dL (0-200); Estimated Glomerular Filt Rate > 60; Glucose 103 mg/dL (65-110); HDL Direct 67 mg/dL; Potassium 3.9 mmol/L (3.4-5.0); Sodium 137 mmol/L (137-145); Total Protein 7.3 g/dL (6.3-8.2); Triglycerides 117 mg/dL (<150)
[2025-01-01 10:59] LABS: Hemoglobin A1C 5.7 % (<5.7)
[2025-01-01 11:03] LABS: Free T4 Free Thyroxine 0.90 ng/dL (0.78-2.19)
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
--- OUTSIDE RECORDS SUMMARY | 2025-01-01 11:12 | XMS_ITS | Encounter Summary ---
Author Organization [facility] Address [address] [place] [address] Care Team Providers Care Criminalist Name Role Phone Darnell Blanco MD Primary Care Provider [phone] Encounter Details Date Type Department Care Team (Late st Contact Info) Description 08/04/2023 Lab Requisition [facility] - DermPath Lab [address] [place] [phone] Zaid Aponte MD [address] [place] [address] Social History Tobacco Use Types Packs/Day Years Used Date Smoking Tobacco: Some Days Smokeless Tobacco: Never Alcohol Use Standard Drinks/Week Comments Yes 0 (1 standard drink = 0.6 oz pur e alcohol) Sex and Gender Information Value Date Recorded Sex Assigned at Not on file Legal Sex Male 7:04 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 Gender Identity Not on file Sexual Orientation Not on file documented as of this encounter Plan of Treatment Not on file documented as of this encounter Procedures Procedure Name Priority Date/Time Associated Diagnosis Comments DERMATOPATHOLOGY Routine 08/02/2023 3:33 AM CDT documented in this encounter Results * DERMATOPATHOLOGY (08/02/2023 3:33 AM CDT) Case Report Dermatopathology Report Case: [id number] Authorizing Provider: Zaid Aponte MD Collected: 08/02/2023 03:33 AM Ordering Location: [facility] - Received: 08/04/2023 09:23 AM [...] (4) pieces of a shave biopsy measuring 44g20n0, 5x3x1, 9x3x1, 5x3x1 mm. Jar 0. 4:49 [...] determined by the Dermatopathology Laboratory at [facility], directed by Dr. Humza Purcell. These tests need not be, and therefore are not, approved by the [place] Food and Drug Administration. The tests are used for clinical purposes. Billing Codes Specimen Charges Stain Charges 32857 95807 1 1 4 4:49 PM CDT DERMATOPATHOLOGY LABORATORY Embedded Images 4 4:49 PM CDT DERMATOPATHOLOGY LABORATORY Pathology/Cytology TISSUE SPECIMEN FROM SKIN / Unknown 08/02/2023 3:33 AM CDT 08/04/2023 9:23 AM CDT Miscellaneous samples (specimen) TISSUE SPECIMEN FROM SKIN / Unknown 08/02/2023 3:33 AM CDT 08/04/2023 9:23 AM CDT Zaid Aponte MD LAB - PATHOLOGY/CYTOLOGY ORDERAB LES Final Result DERMATOPATHOLOGY LABORATORY [facility] Department of Dermatology [facility] Specialized Medicine [address] [place] [address], [address] [phone] documented in this encounter Visit Diagnoses Not on filedocumented in this encounter Care Teams Criminalist Relationship Specialty Start Date End Date Darnell Blanco MD [address] [place] [address] [place] [address] PCP - General 06/10/11 documented as of this encounter
--- OUTSIDE RECORDS SUMMARY | 2025-01-01 11:12 | XMS_ITS | Clinical Summary ---
Author Organization [facility] Address [address] [facility] [place] [address] Care Team Providers Care Form Setter Name Role Phone Darnell Blanco MD Primary Care Provider [phone] Source Comments [facility],non-[facility] Affiliates and Associated Physician Practices is amultiple site organization consisting of ambulatory clinics and hospital sitesin [place], [place], [place] and [place]. This disclosure is being madepursuant to the Care Everywhere program and may not contain all information available regarding this patient. 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
--- OUTSIDE RECORDS SUMMARY | 2025-01-01 11:12 | XMS_ITS | Encounter Summary ---
Author Organization [facility] Address [address] [place] [address] Care Team Providers Care Compounding Pharmacy Technician Name Role Phone Darnell Blanco MD Primary Care Provider [phone] Encounter Details Date Type Department Care Team (Late st Contact Info) Description 02/09/2023 Lab Requisition [facility] - DermPath Lab [address] [place] [phone] Zaid Aponte MD [address] [place] [address] Social History Tobacco Use Types Packs/Day Years Used Date Smoking Tobacco: Some Days Smokeless Tobacco: Never Alcohol Use Standard Drinks/Week Comments Yes 0 (1 standard drink = 0.6 oz pur e alcohol) Sex and Gender Information Value Date Recorded Sex Assigned at Not on file 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 Gender Identity Not on file Sexual Orientation Not on file documented as of this encounter Plan of Treatment Not on file documented as of this encounter Procedures Procedure Name Priority Date/Time Associated Diagnosis Comments DERMATOPATHOLOGY Routine 02/08/2023 12:0 0 AM CDT documented in this encounter Results * DERMATOPATHOLOGY (02/08/2023 12:00 AM CDT) Case Report Dermatopathology Report Case: [id number] Authorizing Provider: Zaid Aponte MD Collected: 02/08/2023 12:00 AM Ordering Location: [facility] DermPath Lab Received: 02/10/2023 [...] of a curettage and desiccation biopsy measuring 94b06m5 mm. Jar 0. Specimen D: Received is [...] characteristic determined by the Dermatopathology Laboratory at [facility], directed by Dr. Humza Purcell. These tests need not be, and therefore are not, approved by the [place] Food and Drug Administration. The tests are used for clinical purposes. Billing Codes Specimen Charges Stain Charges 29465 60964 84209 12161 1 1 1 1 3 2:13 PM [...] PATHOLOGY/CYTOLOGY ORDERAB LES Final Result DERMATOPATHOLOGY LABORATORY [facility] - Department of Dermatology [facility] Medicine [address] [place] [address], [address] [place] [address], [facility] [phone] documented in this encounter Visit Diagnoses Not on filedocumented in this encounter Care Teams Compounding Pharmacy Technician Relationship Specialty Start Date End Date Darnell Blanco MD [address] [place] [phone] PCP - General 06/10/11 documented as of this encounter
--- OUTSIDE RECORDS SUMMARY | 2025-01-01 11:12 | XMS_ITS | Encounter Summary ---
Author Organization [facility] Address [address] [facility] [place] [address] Care Team Providers Care Forest Products Teacher Name Role Phone Darnell Blanco MD Primary Care Provider [phone] Encounter Details Date Type Department Care Team (Late st Contact Info) Description 08/24/2023 Lab Requisition [facility] - DermPath Lab [address] [place] [phone] Zaid Aponte MD [address] [place] [address] Social History Tobacco Use Types Packs/Day Years Used Date Smoking Tobacco: Some Days Smokeless Tobacco: Never Alcohol Use Standard Drinks/Week Comments Yes 0 (1 standard drink = 0.6 oz pur e alcohol) Sex and Gender Information Value Date Recorded Sex Assigned at Not on file 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 Gender Identity Not on file Sexual Orientation Not on file documented as of this encounter Plan of Treatment Not on file documented as of this encounter Procedures Procedure Name Priority Date/Time Associated Diagnosis Comments DERMATOPATHOLOGY Routine 08/22/2023 12:0 0 AM CDT documented in this encounter Results * DERMATOPATHOLOGY (08/22/2023 12:00 AM CDT) Case Report Dermatopathology Report Case: [id number] Authorizing Provider: Zaid Aponte MD Collected: 08/22/2023 12:00 AM Ordering Location: [facility] - Received: 08/24/2023 09:48 AM DermPath Lab Pathologist: Shercie Barnett MD Specimen: Skin, right anterior chest 12:56 PM T DERMATOPATHOLOGY LABORATORY Final Diagnosis Specimen A. SKIN, right anterior chest: SQUAMOUS CELL CARCINOMA IN SITU, SUPERFICIAL FRAGMENTS OF; PRESENT AT THE BASE OF THE SPECIMEN (D04.5) HEALING SKIN CHANGES (L90.5) (see microscopic description and comment) 12:56 PM T DERMATOPATHOLOGY LABORATORY at 1256 CDT Clinical History SCC in situ. See [id number] 12:56 PM T DERMATOPATHOLOGY LABORATORY Gross Description Specimen A: Received is one formalin filled container labeled with the patient's name and designated right anterior chest. The specimen consists of a curettage and desiccation biopsy measuring 95l00o9 mm in aggregate. Jar 0+. 12:56 PM [...] characteristic determined by the Dermatopathology Laboratory at [facility], directed by Dr. Humza Purcell. These tests need not be, and therefore are not, approved by the [place] Food and Drug Administration. The tests are used for clinical purposes. Billing Codes Specimen Charges Stain Charges 38025 1 12:56 PM CDT DERMATOPATHOLOGY LABORATORY Embedded Images 12:56 PM CDT DERMATOPATHOLOGY LABORATORY Pathology/Cytolog y TISSUE SPECIMEN FROM SKIN / Unknown 08/22/2023 08/24/2023 9:48 AM CDT us Zaid Aponte MD LAB - PATHOLOGY/CYTOLOGY ORDERAB LES Final Result DERMATOPATHOLOGY LABORATORY [facility] - Department of Dermatology [facility] [address] [place] [address], [address] [place] [address], [facility] [phone] documented in this encounter Visit Diagnoses Not on filedocumented in this encounter Care Teams Forest Products Teacher Relationship Specialty Start Date End Date Darnell Blanco MD [address] [place] [address] PCP - General 06/10/11 documented as of this encounter
--- OUTSIDE RECORDS SUMMARY | 2025-01-01 11:12 | XMS_ITS | Clinical Summary ---
Author Organization [facility] Address [facility] [place] [address] Care Team Providers Care Sea Kayaking Guide Name Role Phone Dank De Jesus MD Primary Care Provider [phone] Medications HYDROcodone-amyela taminophen (NORCO) 10-325 MG tablet TAKE 1 [...] COVID-19 Vaccine ( - 2023-2 5 season) 2024 RSV Immunization or 60+ Years (1 - [...] this topic Insurance MEDICARE MEDICAID Care Teams Sea Kayaking Guide Relationship Specialty Start Date End Date Dank De Jesus MD [address] [place] [address] PCP - General FAMILY PRACTICE 03/23/22
--- OUTSIDE RECORDS SUMMARY | 2025-01-01 11:12 | XMS_ITS | Encounter Summary ---
Author Organization [facility] Address [address] [place] [address] Care Team Providers Care Service Station Console Operator Name Role Phone Darnell Blanco MD Primary Care Provider [phone] Encounter Details Date Type Department Care Team (Late st Contact Info) Description 08/12/[address] 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 Gender Identity Not on file Sexual Orientation Not on file documented as of this encounter Plan of Treatment Not on file documented as of this encounter Procedures Procedure Name Priority Date/Time Associated Diagnosis Comments DERMATOPATHOLOGY Routine 08/10/2022 3:33 AM CDT documented in this encounter Results * DERMATOPATHOLOGY (08/10/2022 3:33 AM CDT) Case Report Dermatopathology Report Case: [id number] Authorizing Provider: Zaid Aponte MD Collected: 08/10/2022 03:33 AM Ordering Location: [facility] DermPath Lab Received: 08/12/2022 06:37 [...] specimen consists of a shave biopsy measuring 08w2a5uw. Jar 0. 3 12:30 PM CDT DERMATOPATHOLOGY [...] characteristic determined by the Dermatopathology Laboratory at [facility], directed by Dr. Humza Purcell. These tests need not be, and therefore are not, approved by the [place] Food and Drug Administration. The tests are used for clinical purposes. Billing Codes Specimen Charges Stain Charges 54481 1 3 12:30 PM CDT DERMATOPATHOLOGY LABORATORY Embedded Images 3 12:30 PM CDT DERMATOPATHOLOGY LABORATORY Pathology/Cytolo gy TISSUE SPECIMEN FROM SKIN / Unknown 08/10/2022 3:33 AM CDT 08/12/2022 6:37 AM CDT Zaid Aponte MD LAB - PATHOLOGY/CYTOLOGY ORDERAB LES Final Result DERMATOPATHOLOGY LABORATORY [facility] - Department of Dermatology [address], [address] [phone] documented in this encounter Visit Diagnoses Not on filedocumented in this encounter Care Teams Service Station Console Operator Relationship Specialty Start Date End Date Darnell Blanco MD [address] [place] [address] PCP - General 06/10/11 documented as of this encounter
--- OUTSIDE RECORDS SUMMARY | 2025-01-01 11:12 | XMS_ITS | Encounter Summary ---
Author Organization [facility] Address [address] [facility] [place] [address] Care Team Providers Care Night Court Magistrate Name Role Phone Darnell Blanco MD Primary Care Provider [phone] Encounter Details Date Type Department Care Team (Late st Contact Info) Description 06/15/2022 Lab Requisition [facility] DermPath Lab [address] [facility] [place] [phone] Zaid Aponte MD [facility] [place] [address] Social History Tobacco Use Types Packs/Day Years Used Date Smoking Tobacco: Some Days Smokeless Tobacco: Never Alcohol Use Standard Drinks/Week Comments Yes 0 (1 standard drink = 0.6 oz pur e alcohol) Sex and Gender Information Value Date Recorded Sex Assigned at Not on file Legal Sex Male 7:04 PM AIRPLANE RIGGER Gender Identity Not on file Sexual Orientation Not on file documented as of this encounter Plan of Treatment Not on file documented as of this encounter Procedures Procedure Name Priority Date/Time Associated Diagnosis Comments DERMATOPATHOLOGY Routine 06/14/2022 12:0 0 AM AIRPLANE RIGGER documented in this encounter Results * DERMATOPATHOLOGY (06/14/2022 12:00 AM AIRPLANE RIGGER) Case Report Dermatopathology Report Case: [id number] Authorizing Provider: Zaid Aponte MD Collected: 06/14/2022 12:00 AM Ordering Location: [facility] DermPath Lab Received: 06/15/2022 04:46 PM Pathologist: Sherice Barnett MD Specimens: A) - Skin, right nasal bridge B) - Skin, left preauricular 3 2:49 PM [facility] DERMATOPATHOLOGY LABORATORY Final Diagnosis Specimen A. SKIN, right nasal bridge: BASAL CELL CARCINOMA, SUPERFICIAL MULTIFOCAL (C44.311) Specimen B. SKIN, left preauricular: BASAL CELL CARCINOMA, INFILTRATIVE PATTERN (C44.319) (see microscopic description) 3 2:49 PM [facility] DERMATOPATHOLOGY LABORATORY at [address] [facility] Clinical History A-B: Erosion R/O BCC 3 2:49 PM [facility] DERMATOPATHOLOGY LABORATORY Gross Description Specimen A: Received is one formalin filled container labeled with the patient's name and designated right nasal bridge. The specimen consists of a shave biopsy measuring 8a7f6zz. Jar 0. Specimen B: Received is one formalin filled container labeled with the patient's name and designated left preauricular. The specimen consists of a curettage and desiccation biopsy measuring 7x0l4oz, 08y2h9ve, 7c3g2cs, 7l7p4jz, 3a9g2zu, 0l2x1kb and 41p2c1fq. Jar 0. 3 2:49 PM [facility] DERMATOPATHOLOGY LABORATORY Microscopic Description Specimen A. [...] Valerie Vazquez, who agrees. 3 2:49 PM [facility] DERMATOPATHOLOGY LABORATORY Disclaimer An external and internal positive and negative controls are appropriate for the histochemical, immunohistochemical and immunofluorescence stain(s) in this case (if any), except where stated explicitly. The performance characteristics of the stain(s) cited in this report were developed and its performance characteristic determined by the Dermatopathology Laboratory at [facility], directed by Dr. Humza Purcell. These tests need not be, and therefore are not, approved by the [place] Food and Drug Administration. The tests are used for clinical purposes. Billing Codes Specimen Charges Stain Charges 58240 59370 1 1 81236 1 3 2:49 PM AIRPLANE RIGGER DERMATOPATHOLOGY LABORATORY Embedded Images 3 2:49 PM AIRPLANE RIGGER DERMATOPATHOLOGY LABORATORY Pathology/Cytology TISSUE SPECIMEN FROM SKIN / Unknown 06/14/2022 06/15/2022 4:46 PM AIRPLANE RIGGER Miscellaneous samples (specimen) TISSUE SPECIMEN FROM SKIN / Unknown 06/14/2022 06/15/2022 4:46 PM AIRPLANE RIGGER Zaid Aponte MD LAB - PATHOLOGY/CYTOLOGY ORDERAB LES Final Result DERMATOPATHOLOGY LABORATORY [facility] - Department of Dermatology [facility] Medicine [address] [place] [address], [address] [phone] documented in this encounter Visit Diagnoses Not on filedocumented in this encounter Care Teams Night Court Magistrate Relationship Specialty Start Date End Date Darnell Blanco MD [address] [place] [address] PCP - General 06/10/11 documented as of this encounter
--- OUTSIDE RECORDS SUMMARY | 2025-01-01 11:12 | XMS_ITS | Encounter Summary ---
Author Organization [facility] Address [address] [place] [address] Care Team Providers Care Animal Cop Name Role Phone Darnell Blanco MD Primary Care Provider [phone] Encounter Details Date Type Department Care Team (Late st Contact Info) Description 07/21/2022 Lab Requisition [facility] Care DermPath Lab [address] [facility] [place] [address] Zaid Aponte MD [facility] [place] [address] Social History Tobacco Use Types Packs/Day Years Used Date Smoking Tobacco: Some Days Smokeless Tobacco: Never Alcohol Use Standard Drinks/Week Comments Yes 0 (1 standard drink = 0.6 oz pur e alcohol) Sex and Gender Information Value Date Recorded Sex Assigned at Not on file Legal Sex Male 7:04 PM HOUSING MANAGER Gender Identity Not on file Sexual Orientation Not on file documented as of this encounter Plan of Treatment Not on file documented as of this encounter Procedures Procedure Name Priority Date/Time Associated Diagnosis Comments DERMATOPATHOLOGY Routine 07/20/2022 12:0 0 AM CDT documented in this encounter Results * DERMATOPATHOLOGY (07/20/2022 12:00 AM CDT) Case Report Dermatopathology Report Case: [id number] Authorizing Provider: Zaid Aponte MD Collected: 07/20/2022 12:00 AM Ordering Location: [facility] DermPath Lab Received: 07/21/2022 04:15 PM [...] characteristic determined by the Dermatopathology Laboratory at [facility], directed by Dr. Humza Purcell. These tests need not be, and therefore are not, approved by the [place] Food and Drug Administration. The tests are used for clinical purposes. Billing Codes Specimen Charges Stain Charges 63160 1 3 1:45 PM CDT DERMATOPATHOLOGY LABORATORY Embedded Images 3 1:45 PM CDT DERMATOPATHOLOGY LABORATORY Pathology/Cytolog y TISSUE SPECIMEN FROM SKIN / Unknown 07/20/2022 07/21/2022 4:15 PM CDT Zaid Aponte MD LAB - PATHOLOGY/CYTOLOGY ORDERAB LES Final Result DERMATOPATHOLOGY LABORATORY [facility] - Department of Dermatology [address], [address] [phone] documented in this encounter Visit Diagnoses Not on filedocumented in this encounter Care Teams Animal Cop Relationship Specialty Start Date End Date Darnell Blanco MD [address] [place] [address] PCP - General 06/10/11 documented as of this encounter
--- OUTSIDE RECORDS SUMMARY | 2025-01-01 11:12 | XMS_ITS | Encounter Summary ---
Author Organization [facility] Address [address] [facility] [place] [address] Care Team Providers Care Weaver Wire Loom Name Role Phone Darnell Blanco MD Primary Care Provider [phone] Encounter Details Date Type Department Care Team (Late st Contact Info) Description 06/21/2018 Lab Requisition [facility] D[facility] [address] [facility] [place] [address] Zaid Aponte MD [address] [place] [address] Social History Tobacco Use Types Packs/Day Years Used Date Smoking Tobacco: Some Days Smokeless Tobacco: Never Alcohol Use Standard Drinks/Week Comments Yes 0 (1 standard drink = 0.6 oz pur e alcohol) Sex and Gender Information Value Date Recorded Sex Assigned at Not on file Legal Sex Male 7:04 PM HUMAN RELATIONS MANAGER Gender Identity Not on file Sexual Orientation Not on file documented as of this encounter Plan of Treatment Not on file documented as of this encounter Procedures Procedure Name Priority Date/Time Associated Diagnosis Comments DERMATOPATHOLOGY Routine 06/19/2018 12:0 0 AM HUMAN RELATIONS MANAGER documented in this encounter Results * DERMATOPATHOLOGY (06/19/2018 12:00 AM HUMAN RELATIONS MANAGER) Case Report Dermatopathology Report Case: [id number] Authorizing Provider: Zaid Aponte MD Collected: 06/19/2018 12:00 AM Pathologist: Rylie Arroyo MD Received: 06/21/2018 07:20 AM Specimen: Skin, left nasal wall 12:15 PM HUMAN RELATIONS MANAGER DERMATOPATHOLOGY LABORATORY Final Diagnosis Specimen A. SKIN, left nasal wall: BASAL CELL CARCINOMA, NODULAR TYPE (C44.311) PRESENT AT MARGIN 12:15 PM [facility] DERMATOPATHOLOGY LABORATORY at 1215 HUMAN RELATIONS MANAGER Clinical History Prob BCC. Check margins. 12:15 PM [facility] DERMATOPATHOLOGY LABORATORY Gross Description Specimen A: Received is one formalin filled container labeled with the patients name and designated left nasal wall. The specimen consists of a shave removal measuring 00p01n9mt. The margin is inked green. Jar 0. 12:15 PM [facility] DERMATOPATHOLOGY LABORATORY Microscopic Description Specimen A. SKIN, left nasal wall: Within the dermis there are aggregates of basaloid cells with a high nuclear to cytoplasmic ratio and peripheral palisading. This lesion is present at the margin of the specimen. 12:15 PM [facility] DERMATOPATHOLOGY LABORATORY Disclaimer An external and internal positive and negative controls are appropriate for the histochemical, immunohistochemical and immunofluorescence stain(s) in this case (if any), except where stated explicitly. The performance characteristics of the stain(s) cited in this report were developed and its performance characteristic determined by the Dermatopathology Laboratory at [facility], directed by Dr. Humza Purcell. These tests need not be, and therefore are not, approved by the [place] Food and Drug Administration. The tests are used for clinical purposes. Billing Codes Specimen Charges Stain Charges 49059 1 12:15 PM [facility] DERMATOPATHOLOGY LABORATORY Embedded Images 12:15 PM [facility] DERMATOPATHOLOGY LABORATORY Pathology/Cytolog y TISSUE SPECIMEN FROM SKIN / Unknown 06/19/2018 06/21/2018 7:20 AM HUMAN RELATIONS MANAGER us Zaid Aponte MD LAB - PATHOLOGY/CYTOLOGY ORDERAB LES Final Result DERMATOPATHOLOGY LABORATORY [facility] - Department of Dermatology [address] [facility], [address] [place] [address], [facility] [phone] documented in this encounter Visit Diagnoses Not on filedocumented in this encounter Care Teams Weaver Wire Loom Relationship Specialty Start Date End Date Darnell Blanco MD [address] [place] [phone] PCP - General 06/10/11 documented as of this encounter
[2025-01-01 11:31] LABS: Prostate Specific Antigen 0.3 ng/mL (< OR = 4.0); Thyroid Stimulating Hormone 0.399 uIU/mL (0.465-4.680)
[2025-01-01 12:46] LABS: Vitamin B12 551.0 pg/mL (239-931)
== END 2025-01-01 09:57 | disposition home or self-care (01) ==
PROVIDERS: PCP Family Medicine; Visit Provider Nurse Practitioner Family
DX: E78.5 Hyperlipidemia, unspecified (principal); E55.9 Vitamin D deficiency, unspecified; Z13.29 Encounter for screening for other suspected endocrine disorder; Z11.59 Encounter for screening for other viral diseases; Z12.31 Encounter for screening mammogram for malignant neoplasm of breast; Z12.5 Encounter for screening for malignant neoplasm of prostate
CPT/HCPCS: 36415; 80053; 80061; 82306; 82607; 83036; 84153; 84439; 84443; 85027; 86803